=== PATIENT | male | born 1955 | race Caucasian/White ===

== ENCOUNTER 2020-07-14 14:23 | Outpatient (REF) | payer MEDICARE, MEDICAID, SELFPAY ==
--- NOTE | ~2020-07-14 | XR_ITS ---
EXAMINATION: XR knee RT 4V CLINICAL INFORMATION: Reason for Exam PAIN, BURNING COMPARISON: None available at the time of this dictation. TECHNIQUE: frontal, lateral, tunnel and oblique views FINDINGS: BONES: No fracture or dislocation is present. JOINTS: Narrowing of joint spaces suggest mild degenerative osteoarthritis. SOFT TISSUE: Normal XR/XR knee RT 4V IMPRESSION: Mild degenerative osteoarthritis. No joint effusion.
[2020-07-14 17:20] LABS: Alanine Aminotransferase 40 U/L (0-40); Albumin Level 4.1 g/dL (3.5-5.0); Alkaline Phosphatase 62 U/L (39-117); Anion Gap 13 (12-20); Aspartate Amino Transferase 28 U/L (5-37); Bilirubin Direct 0.2 mg/dL (0.0-0.5); Bilirubin Total 0.6 mg/dL (0.0-1.0); Blood Urea Nitrogen 11 mg/dL (9-16); Calcium 9.1 mg/dL (8.4-10.2); Carbon Dioxide 25 mmol/L (22-29); Chloride 106 mmol/L (96-108); Cholesterol 153 mg/dL; Estimated Glomerular Filt Rate > 60; Glucose Random 89 mg/dL (60-115); HDL Cholesterol 45 mg/dL; LDL Cholesterol Calculated 89 mg/dl; Potassium 4.2 mmol/L (3.3-5.1); Sodium 140 mmol/L (135-145); Total Protein 6.4 g/dL (6.5-8.0); Triglycerides 98 mg/dL
== END 2020-07-14 14:24 | disposition home or self-care (01) ==
LOC: HO.HMGCX 14:23
PROVIDERS: PCP Internal Medicine; Visit Provider Internal Medicine
DX: M25.561 Pain in right knee (principal); I10 Essential (primary) hypertension
CPT/HCPCS: 36415; 73564; 80048; 80061; 80076

== ENCOUNTER 2021-05-07 10:07 | Outpatient (REF) | payer MEDICARE, MEDICAID, SELFPAY ==
--- NOTE | ~2021-05-07 | XR_ITS ---
EXAMINATION: XR RIBS, RIGHT CLINICAL INFORMATION: Contusion from wall of the thorax COMPARISON: Previous chest x-ray January 2019 TECHNIQUE: 3 views of the right ribs and one view of the chest were obtained. FINDINGS: The cardiac and mediastinal contours are stable. There is a left subclavian AICD projecting over the right ventricle that appears unchanged. The lungs are clear. There is no pleural effusion or pneumothorax. There are old-appearing right seventh and eighth and ninth posterior lateral rib fractures. No acute fracture is seen. There are degenerative changes of the spine. XR/XR ribs RT min 3V w CXR1V IMPRESSION: No evidence for acute disease in the chest. No acute rib fracture.
== END 2021-05-07 10:08 | disposition home or self-care (01) ==
LOC: HO.HMGCX 10:07
PROVIDERS: PCP Internal Medicine; Visit Provider Internal Medicine
DX: S20.219A Contusion of unspecified front wall of thorax, initial encounter (principal)
CPT/HCPCS: 71101

== ENCOUNTER → 2022-04-16 09:03 | Outpatient (BNVA) | payer MEDICARE, MEDICAID, SELFPAY | PROVIDERS: PCP Internal Medicine; Referring Provider Internal Medicine; Visit Provider Surgery | DX: K60.3 Anal fistula (principal) | CPT/HCPCS: 99202 ==

== ENCOUNTER 2022-05-08 08:05 | Outpatient (REF) | payer MEDICARE, MEDICAID, SELFPAY ==
--- NOTE | ~2022-05-08 | XR_ITS ---
EXAMINATION: XR HAND, LEFT CLINICAL INFORMATION: Left hand pain COMPARISON: None available. TECHNIQUE: PA, lateral, and oblique views of the left hand. FINDINGS: The bones and soft tissues are normal. No fracture. Alignment is anatomic. Joint spaces are maintained. No erosions or soft tissue calcifications. XR/XR hand LT min 3V IMPRESSION: No significant abnormality of the left hand identified.
== END 2022-05-08 08:06 | disposition home or self-care (01) ==
LOC: HO.HOSX 08:05
PROVIDERS: PCP Internal Medicine; Visit Provider Orthopaedic Surgery
DX: M79.642 Pain in left hand (principal); K61.0 Anal abscess; R20.0 Anesthesia of skin; R20.2 Paresthesia of skin
CPT/HCPCS: 46600; 73130; 99202; 99212

== ENCOUNTER 2022-06-04 06:27 | Day surgery (SDC) | payer MEDICARE, MEDICAID, SELFPAY ==
[2022-05-31 09:02] VITALS: BMI 25.4
--- NOTE | 2022-06-03 09:51 | P.CONAN_ITS ---
Documented by User: Navya Bello NP 06/03/22 09:59 HPI - Anesthesia Eval Consult details Narrative: 66yo M for Exam Under Anesthesia poss fistulotomy possible seton possible exc of cyst Case reviewed with Dr Crook by ALFONZO Emerson ICD in situ Plavix/asa for CAD PMFSH Active Problems Active Problems: All Active Problems (Updated 05/31/22 @ 09:00 by Carolyn Forman RN) Contusion, chest wall (Acute) Anal abscess (Acute) Numbness and tingling in left hand (Acute) Past Medical History Medical History (Updated 05/31/22 @ 09:00 by Carolyn Forman RN) CAD (coronary artery disease) Elevated cholesterol High cholesterol HTN (hypertension) Hypothyroid Myocardial infarction Peripheral artery disease Family History Family History Mother Ovarian cancer Surgical History Surgical History (Updated 05/31/22 @ 09:00 by Carolyn Forman RN) AICD (automatic cardioverter/defibrillator) present History of surgery Hx of cardiac catheterization Hx of heart artery stent Hx of left inguinal hernia repair Social History Social History Are you a primary customer care consultant to a significant other at home: No Do you presently have visiting nurse or other home services: No Alcohol intake: never Patient Tobacco Use Status: Former Tobacco user Quit Date: 11/2021 Tobacco use type: Cigarette Cigarette Packs Per Day: 1.5 Cigarettes Per Day: 30.0 Years Smoked: 30 Smoked in Last 30 Days: No Use of substances other than those prescribed or required for medical reasons: No Have you been hit, kicked, punched, or otherwise hurt by someone within the past year? 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 Meds Allergies Allergy/AdvReac Type Severity Reaction Status Date / Time No Known Allergies Allergy Unverified 05/08/22 09:23 Home Medications Medication Instructions Recorded Confirmed Last Taken Type atorvastatin 80 mg tablet 80 mg PO DAILY 05/07/21 05/30/22 Unknown History carvedilol 3.125 mg tablet 3.125 mg PO BID 05/07/21 05/30/22 06/04/22 History clopidogrel 75 mg tablet 75 mg PO DAILY 05/07/21 05/30/22 05/28/22 History losartan 25 mg tablet 25 mg PO DAILY 05/07/21 05/30/22 Unknown History pantoprazole 40 mg tablet,delayed 40 mg PO DAILY 05/07/21 05/30/22 06/04/22 History release thiamine HCl (vitamin B1) 100 mg 100 mg PO DAILY 05/07/21 05/30/22 Unknown History tablet aspirin 81 mg tablet,delayed 81 mg PO QAM 05/31/22 05/31/22 06/02/22 History release levothyroxine 75 mcg tablet 75 mcg PO QAM 05/31/22 05/31/22 Unknown History sildenafil 50 mg tablet (Viagra) 50 mg PO DAILY PRN Erectile 05/31/22 05/31/22 Unknown History Dysfunction Exam Exam Date and Time: June 03, 2022 0951 Height,Weight and Vital Signs: Height 5 ft 8 in Weight 75.75 kg Narrative Narrative: ICD interrogation 04/2022 Battery and lead parameters eval'd and WNL. Battery longevity 9 years. Nml ICD function. 1 episode of NSVT Assessment and Plan Assessment Anesthesia Assessment: Chart Reviewed Documented by User: Neno Cavazos MD 06/04/22 08:50 [facility] Past Medical History Medical History (Updated 05/31/22 @ 09:00 by Carolyn Forman RN) CAD (coronary artery disease) Elevated cholesterol High cholesterol HTN (hypertension) Hypothyroid Myocardial infarction Peripheral artery disease Family History Family History Mother Ovarian cancer Family history of problems with anesthesia: No Surgical History Surgical History (Updated 05/31/22 @ 09:00 by Carolyn Forman RN) AICD (automatic cardioverter/defibrillator) present History of surgery Hx of cardiac catheterization Hx of heart artery stent Hx of left inguinal hernia repair History of Problems with Anesthesia: No Social History Social History Are you a primary customer care consultant to a significant other at home: No Do you presently have visiting nurse or other home services: No Alcohol intake: never Patient Tobacco Use Status: Former Tobacco user Quit Date: 11/2021 Tobacco use type: Cigarette Cigarette Packs Per Day: 1.5 Cigarettes Per Day: 30.0 Years Smoked: 30 Smoked in Last 30 Days: No Use of substances other than those prescribed or required for medical reasons: No Have you been hit, kicked, punched, or otherwise hurt by someone within the past year? 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 [email or web address] Allergies Allergy/AdvReac Type Severity Reaction Status Date / Time No Known Allergies Allergy Unverified 05/08/22 09:23 Home Medications Medication Instructions Recorded Confirmed Last Taken Type atorvastatin 80 mg tablet 80 mg PO DAILY 05/07/21 05/30/22 Unknown History carvedilol 3.125 mg tablet 3.125 mg PO BID 05/07/21 05/30/22 06/04/22 History clopidogrel 75 mg tablet 75 mg PO DAILY 05/07/21 05/30/22 05/28/22 History losartan 25 mg tablet 25 mg PO DAILY 05/07/21 05/30/22 Unknown History pantoprazole 40 mg tablet,delayed 40 mg PO DAILY 05/07/21 05/30/22 06/04/22 History release thiamine HCl (vitamin B1) 100 mg 100 mg PO DAILY 05/07/21 05/30/22 Unknown History tablet aspirin 81 mg tablet,delayed 81 mg PO QAM 05/31/22 05/31/22 06/02/22 History release levothyroxine 75 mcg tablet 75 mcg PO QAM 05/31/22 05/31/22 Unknown History sildenafil 50 mg tablet (Viagra) 50 mg PO DAILY PRN Erectile 05/31/22 05/31/22 Unknown History Dysfunction Exam Airway Mallampati Class: I TM Dist: >3cm Neck ROM: Full Heart: ok Lungs: ok Assessment and Plan Assessment Anesthesia Assessment: Anesthesia Plan Discussed Final Anesthetic Review Family History of Problems with Anesthesia: No History of Problems with Anesthesia: No NPO: Yes ASA Class: III Final Preanesthetic Review: No Changes in Pt Med Stat, Meds/Allgs Chart Reviewed, Consent Obtained/Reviewed and Anes Risks/Benef Reviewed Patient Risk: Intermediate Procedure Risk: Intermediate Anesthetic Plan Anesthetic Plan: GA and Agree w/ Assess. and Plan Disposition: Standard PACU
--- NOTE | 2022-06-04 | ECG_ITS ---
Test Reason : HX [place] PREOP Blood Pressure : / mmHG Vent. Rate : 056 BPM Atrial Rate : 056 BPM P-R Int : 176 ms QRS Dur : 092 ms QT Int : 446 ms P-R-T Axes : 051 059 019 degrees QTc Int : 430 ms Sinus bradycardia Low voltage QRS Borderline ECG No previous ECGs available Referred By: Navya Bello Electronically Signed By:Brian Lentz
[2022-06-04 07:11] VITALS: BP 127/74; PULSE 56; RESP 16; TEMP 36.5; O2SAT 97
[2022-06-04 07:40] LABS: Hematocrit 41.7 % (42.0-52.0); Hemoglobin 13.8 g/dl (14.0-18.0); Mean Corpuscular HGB Conc 33.1 g/dl (31.0-36.0); Mean Corpuscular Hemoglobin 31.1 pg (27.0-33.0); Mean Corpuscular Volume 93.9 fL (80.0-98.0); Mean Platelet Volume 9.2 fL (9.4-12.4); Platelet Count 247 X10*3/uL (160-400); Red Blood Count 4.44 X10*6/uL (4.60-5.80); Red Cell Distribution Width 13.2 % (11.0-16.0); White Blood Count 9.2 X10*3/uL (4.8-10.8)
[2022-06-04] MEDS: Lactated Ringers 1,000 ML 100 ML IVCONT (07:42)
[2022-06-04 07:57] LABS: Anion Gap 13 (12-20); Blood Urea Nitrogen 10 mg/dL (9-16); Calcium 9.1 mg/dL (8.4-10.2); Carbon Dioxide 24 mmol/L (22-29); Chloride 107 mmol/L (96-108); Creatinine Clr Calc Pharmacy 85.7; Estimated Glomerular Filt Rate > 60; Glucose Fasting 94 mg/dL (60-99); Potassium 4.1 mmol/L (3.3-5.1); Sodium 140 mmol/L (135-145)
--- NOTE | 2022-06-04 08:20 | MHC.SHP ---
Pre-Procedural Eval Section A Date of Service: 06/04/22 The patient is an INPATIENT: No Changes since office visit: No Cold of Flu in the past 2 weeks, No New Medical Problems, No Changes in Medication and No Patient answered all questions The History & Physical has been completed within 30 days and I have reviewed it.: Yes Section B Chief Complaint: Anal abscess Allergies: Allergies Allergy/AdvReac Type Severity Reaction Status Date / Time No Known Allergies Allergy Unverified 05/08/22 09:23 Plan I have reviewed the history and physical and performed a pertinent physical examination on my patient. No changes have occurred unless specified. Time Spent With Patient Time: Total time managing care of this patient today ____ minutes.
--- NOTE | 2022-06-04 09:26 | W.PM.OPN ---
Operative Note Operative Note Date of Service: 06/04/22 Narrative: Preop diagnosis: Recurrent perianal abscess, possible fistula, possible perianal cyst Postop diagnosis: Perianal cyst, no fistula identified Procedure: Exam under anesthesia, excision of perianal cyst Surgeon: Joe Betancur MD The patient is a 66-year-old male with note of a recurrent perianal abscess for many years now. He was seen by me in the office. Was noted to have an indurated area anteriorly on the perianal skin. Anoscopy did not reveal any obvious internal fistulous opening. I therefore explained to him that it will be best to proceed with an exam under anesthesia and if identify any tract, will do fistulotomy or possible seton placement. Otherwise, we may just need to proceed with excision of a perianal cyst. He understood the technique of the planned procedure. He was aware of the risks, benefits, and alternatives. He was brought to the operating room. He was placed in prone rocky-knife position under general anesthesia via LMA. A surgical time-out was done. The perianal area was prepped and draped in the usual sterile fashion. The buttocks were retracted with wide tape laterally. I infiltrated the perianal area with lidocaine 1%. Examination of the perianal area revealed this small induration, about 3 cm from the anal verge anteriorly and a little to the left of the midline. There was no fluctuance or any obvious sinus. I inserted the Buire Watson retractor examined the anal canal circumferentially. There was no identifiable fistulous opening dentate line. There is no palpable induration suggestive of a tract. There was no lesion or any unusual mucosal lining. It appeared therefore that there was no fistulous tract. I therefore proceeded to an elliptical incision around this indurated area using blade 15 and this carried down through the full-thickness of the skin and subcutaneous fat to excise this entire indurated tissue. I then proceeded to probe this area and there was no identifiable tract. The entire cavity appeared to be blind. I irrigated this area of excision. I closed the incision with thickness chromic 3-0 interrupted sutures. The area was then infiltrated with Marcaine 0.5% for postop analgesia. The procedure was then completed The patient tolerated procedure well. There were no immediate complications. Initial and final counts of sponges and instruments were correct. Estimated blood loss about 5 cc The patient was extubated without difficulty and transferred to the recovery room with stable vital signs.
[2022-06-04 09:41] VITALS: BP 124/77; PULSE 62; RESP 18; TEMP 36.5; O2SAT 98
[2022-06-04 09:46] VITALS: BP 121/79; PULSE 59; RESP 18; O2SAT 99
[2022-06-04 09:51] VITALS: BP 115/76; PULSE 53; RESP 18; O2SAT 99
[2022-06-04 09:56] VITALS: BP 120/81; PULSE 59; RESP 18; TEMP 36.1; O2SAT 99
== END 2022-06-04 10:19 | disposition home or self-care (01) ==
PROVIDERS: Nurse Practitioner; PCP Internal Medicine; Visit Provider Surgery
PROC: (CPT 46922; principal; 2022-06-04 09:10)
DX: L05.91 Pilonidal cyst without abscess (principal); I10 Essential (primary) hypertension; I25.10 Atherosclerotic heart disease of native coronary artery without angina pectoris; Z95.810 Presence of automatic (implantable) cardiac defibrillator; E78.00 Pure hypercholesterolemia, unspecified; Z79.899 Other long term (current) drug therapy; Z79.82 Long term (current) use of aspirin; Z87.891 Personal history of nicotine dependence
CPT/HCPCS: 46922; 36415; 80048; 85027; 88304; 93005; J3010

== ENCOUNTER → 2022-06-17 14:50 | Outpatient (BNVA) | payer MEDICARE, MEDICAID, SELFPAY | PROVIDERS: PCP Internal Medicine; Visit Provider Surgery | DX: Z48.815 Encounter for surgical aftercare following surgery on the digestive system (principal); K61.0 Anal abscess | CPT/HCPCS: 99212 ==

== ENCOUNTER 2022-06-27 08:53 | Outpatient (REF) | payer MEDICARE, MEDICAID, SELFPAY ==
--- NOTE | 2022-06-27 08:56 | EMG_ITS ---
Bilateral median and ulnar motor and sensory studies were performed. Bilateral radial and sensory studies were performed and paraspinal muscles were tested with a needle. IMPRESSION: 1. [id number] bilateral median neuropathy across carpal tunnel. 2. Mild bilateral ulnar neuropathy across cubital tunnel. MD BREANNA Enrique/USAMAL / [id number]
== END 2022-06-27 08:54 | disposition home or self-care (01) ==
LOC: HO.NEURO 08:53
PROVIDERS: Visit Provider Orthopaedic Surgery
DX: R20.0 Anesthesia of skin (principal); R20.2 Paresthesia of skin
CPT/HCPCS: 95886; 95911

== ENCOUNTER 2022-08-23 09:58 | Outpatient (REF) | payer MEDICARE, MEDICAID, SELFPAY ==
[2022-08-23 15:21] LABS: Alanine Aminotransferase 14 U/L (0-40); Albumin Level 4.1 g/dL (3.5-5.0); Alkaline Phosphatase 77 U/L (39-117); Anion Gap 14 (12-20); Aspartate Amino Transferase 19 U/L (5-37); Blood Urea Nitrogen 14 mg/dL (9-16); Calcium 9.8 mg/dL (8.4-10.2); Carbon Dioxide 26 mmol/L (22-29); Chloride 104 mmol/L (96-108); Cholesterol 180 mg/dL; Estimated Glomerular Filt Rate > 60; Glucose Fasting 62 mg/dL (60-99); HDL Cholesterol 44 mg/dL; LDL Cholesterol Calculated 94 mg/dl; Sodium 140 mmol/L (135-145); Total Protein 6.9 g/dL (6.5-8.0); Triglycerides 211 mg/dL
[2022-08-23 15:45] LABS: TSH reflex Free T4 7.77 uIU/mL (0.32-4.0)
[2022-08-23 16:31] LABS: Bilirubin Total 0.6 mg/dL (0.0-1.0)
[2022-08-23 16:38] LABS: Free T4 (Free Thyroxine) 1.48 ng/dL (0.71-1.85)
== END 2022-08-23 09:59 | disposition home or self-care (01) ==
LOC: HO.CHCLDS 09:58
PROVIDERS: Visit Provider Internal Medicine
DX: E78.2 Mixed hyperlipidemia (principal)
CPT/HCPCS: 36415; 80053; 80061; 84439; 84443

== ENCOUNTER 2022-09-25 10:42 | Outpatient (AMB) | payer MEDICARE, MEDICAID, SELFPAY ==
[2022-09-25 10:45] VITALS: BP 128/78; PULSE 60; BMI 24.2
--- NOTE | 2022-09-25 10:45 | A.OFFVIS_ITS ---
Intake Vital Signs 09/25/22 10:45 Height 5 ft 8 in Weight 159 lb BMI 24.2 BP 128/78 Blood Pressure Location Lt brachial Position Sitting Pulse 60 Pulse Source Monitor Intake Visit Reasons: NPV/coronary artery disease Intake Note: New patient visit with EKG for evaluation of coronary artery disease. 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 Fine Wire Required: No Accompanied by: Self / Same As Patient Allergies No Known Allergies Allergy (Verified 09/25/22 10:49) Medication List - Last Reconciled 09/25/22 by Brian Lentz MD aspirin 81 mg PO QAM atorvastatin 80 mg PO DAILY carvedilol 3.125 mg PO BID clopidogrel 75 mg PO DAILY levothyroxine 125 mcg PO QAM losartan 25 mg PO DAILY oxycodone-acetaminophen 5-325 mg (Percocet) 1 tab PO Q4-6H PRN pantoprazole 40 mg PO DAILY sildenafil (Viagra) 50 mg PO DAILY PRN thiamine HCl (vitamin B1) 100 mg PO DAILY HPI HPI Comments History of Present Illness Details Hospital 67-year-old gentleman who is here for 1st office visit. He was following at [place] with Dr. Rhianna Nuñez. In 2019 while at work he had cardiac arrest and was rushed to [facility]. It appears she had complete heart block and had pacemaker placement at the same time. He is saying he had stents put in at that time. We do not have any information about it but could be that he had right coronary artery closure with complete heart block with subsequently no recovery and required pacemaker placement. In any case currently no records available. He is denying any symptoms. He is saying that he wakes up at 03:00 and leaves his house and is active all the time including biking roller-skating with his grandchildren cetera. He has no chest discomfort shortness of breath. Taking medications regularly. [facility], [facility] Medical History (Updated 09/25/22 @ 11:57 by Brian Lentz MD) CAD (coronary artery disease) Elevated cholesterol High cholesterol HTN (hypertension) Hypothyroid Myocardial infarction Peripheral artery disease Surgical History AICD (automatic cardioverter/defibrillator) present History of surgery Hx of cardiac catheterization Hx of heart artery stent Hx of left inguinal hernia repair Family History (Updated 09/25/22 @ 10:51 by NATY Garvin) Mother Ovarian cancer Father Heart attack Social History (Updated 09/25/22 @ 10:51 by NATY Garvin) Are you a primary critical care physician assistant to a significant other at home: No Do you presently have visiting nurse or other home services: No Alcohol intake: never Patient Tobacco Use Status: Former Tobacco user Quit Date: 11/2021 Tobacco use type: Cigarette Years Smoked: 30 +/- Current occupational status: retired 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 Review of Systems Const Denies weakness Eyes Denies loss of vision ENT Denies dizziness Card Denies chest pain, Denies chest pain with activity, Denies syncope, Denies rapid heart rate, Denies pedal edema, Denies edema, Denies leg edema, Denies lightheadedness, Denies palpitations, Denies dyspnea, Denies dyspnea on exertion and Denies orthopnea Resp Denies cough, Denies dyspnea, Denies dyspnea on exertion and Denies wheezing GI Denies hematochezia and Denies change in stool character Denies hematuria, Denies dysuria and Denies urinary frequency Musc Denies abnormal gait, Denies muscle cramps, Denies muscle weakness, Denies numbness, Denies radiating pain into limb and Denies tingling Skin/Breast Denies nail changes and Denies rash Neuro Denies Abnormal speech present, Denies abnormal gait, Denies dizziness, Denies syncope, Denies loss of vision, Denies memory loss, Denies numbness, Denies tingling and Denies weakness Psych Denies depression and Denies memory loss Endo Denies palpitations Aller/Immun Denies wheezing Physical Exam Vital Signs: Last Vital Signs Pulse 60 09/25/22 10:45 BP 128/78 09/25/22 10:45 BMI result Body Mass Index 24.2 GENERAL APPEARANCE: in no acute distress, pleasant. NECK: no carotid bruit, no jugular venous distention. SKIN: no suspicious lesions, warm and dry. HEART: no murmurs, regular rate and rhythm. LUNGS: clear to auscultation bilaterally. ABDOMEN: soft, nontender. EXTREMITIES: no edema. PERIPHERAL PULSES: equal. NEUROLOGIC: No gross deficits, AAO X 3 Neuro Speech: No Abnormal speech present Office Procedures EKG Details: Normal sinus rhythm 60 beats per minute, Imtiaz, cannot rule out inferior infarct, QTC 438 milliseconds. 39185-[id number], Complete Assessment & Plan Assessment & Plan (1) Stable angina: Code(s): I20.8 - Other forms of angina pectoris (2) High cholesterol: Code(s): E78.00 - Pure hypercholesterolemia, unspecified Plan Pleasant 67-year-old gentleman who is here for 1st office visit. He has known history of coronary disease with previous cardiac arrest in PCI at [facility] in 2019. He has been following yearly with [facility] and has not had any further symptoms since then. He is saying he had workup done including stress testing and echocardiography with [facility] after his cardiac arrest in the last few years. Denying any exertional symptoms right now. Reporting that he is quite active physically. Blood pressure control is good. No testing required currently. His LDL cholesterol is high. His triglycerides also high. He recently increase levothyroxine to 125 mcg daily. He should have repeat fasting lipid panel in 8 weeks. If LDL cholesterol is not less than 70 then consider adding ezetimibe 10 mg daily. Thank you for allowing me to participate in the care of your patient. Please feel free to contact me if you have any questions. Coding Level of Care Code New Pt Level 4 (67913) Diagnoses Stable angina I20.8 High cholesterol E78.00 CPT Codes EKG - CPT: 24058-[id number], Complete ([id number])
== END 2022-09-25 12:37 | disposition home or self-care (01) ==
LOC: HO.HCSM 10:42
PROVIDERS: PCP Internal Medicine; Referring Provider Internal Medicine; Visit Provider Internal Medicine Cardiovascular Disease
DX: I20.8 Other forms of angina pectoris (principal); E78.00 Pure hypercholesterolemia, unspecified
CPT/HCPCS: 93010; 99213

== ENCOUNTER → 2022-09-25 10:42 | Outpatient (BNVA) | payer MEDICARE, MEDICAID, SELFPAY | PROVIDERS: PCP Internal Medicine; Referring Provider Internal Medicine; Visit Provider Internal Medicine Cardiovascular Disease | DX: I20.8 Other forms of angina pectoris (principal); E78.00 Pure hypercholesterolemia, unspecified | CPT/HCPCS: 93005; 99212 ==

== ENCOUNTER → 2023-01-10 23:59 | Outpatient (BNV) | payer OTHER, MEDICAID, SELFPAY ==
--- NOTE | 2023-01-20 20:32 | A.OFFVIS_ITS ---
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 Allergies No Known Allergies Allergy (Verified 09/25/22 10:49) PFSH Medical History (Updated 01/20/23 @ 17:50 by Brian Lentz MD) Hypothyroid Peripheral artery disease Elevated cholesterol Myocardial infarction CAD (coronary artery disease) HTN (hypertension) High cholesterol Surgical History Hx of cardiac catheterization Hx of heart artery stent AICD (automatic cardioverter/defibrillator) present Hx of left inguinal hernia repair History of surgery Family History (Updated 09/25/22 @ 10:51 by NATY Garvin) Mother Ovarian cancer Father Heart attack Social History (Updated 09/25/22 @ 10:51 by NATY Garvin) Are you a primary respiratory care technician to a significant other at home: No Do you presently have visiting nurse or other home services: No Alcohol intake: never Patient Tobacco Use Status: Former Tobacco user Quit Date: 11/2021 Tobacco use type: Cigarette Years Smoked: 30 +/- Current occupational status: retired 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
== END ==
PROVIDERS: PCP Internal Medicine; Visit Provider Internal Medicine Cardiovascular Disease
DX: I25.10 Atherosclerotic heart disease of native coronary artery without angina pectoris (principal)
CPT/HCPCS: 93297

== ENCOUNTER → 2023-01-10 23:59 | Outpatient (BNV) | payer OTHER, MEDICAID, SELFPAY ==
--- NOTE | 2023-01-20 17:49 | MHC.OFFVIS ---
Intake Intake Visit Reasons: Remote ICD Check- [employer] Allergies No Known Allergies Allergy (Verified 09/25/22 10:49) PFS Medical History (Updated 01/20/23 @ 17:49 by Brian Lentz MD) Hypothyroid Peripheral artery disease Elevated cholesterol Myocardial infarction CAD (coronary artery disease) HTN (hypertension) High cholesterol Surgical History Hx of cardiac catheterization Hx of heart artery stent AICD (automatic cardioverter/defibrillator) present Hx of left inguinal hernia repair History of surgery Family History (Updated 09/25/22 @ 10:51 by NATY Garvin) Mother Ovarian cancer Father Heart attack Social History (Updated 09/25/22 @ 10:51 by NATY Garvin) Are you a primary care tech to a significant other at home: No Do you presently have visiting nurse or other home services: No Alcohol intake: never Patient Tobacco Use Status: Former Tobacco user Quit Date: 11/2021 Tobacco use type: Cigarette Years Smoked: 30 +/- Current occupational status: retired 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 No new alerts. [id number] Cardiac Device Interrogation, pacemaker or defibrillator Procedure code (CPT) selection complete Assessment & Plan Assessment & Plan (1) CAD (coronary artery disease): Comment: last OV w/side laster tack 05/2020 but had device interrogation 04/10/22 @ [facility]-currently denies CP/SOB-is a runner, skis all winter, roller blades w/grandchildren (chart reviewed by on 05/31/22 & OK to proceed with 06/04 surgery) Code(s): I25.10 - Atherosclerotic heart disease of [place] coronary artery without angina pectoris Plan: Coding Level of Care Code Procedure Only Diagnoses CAD (coronary artery disease) I25.10 CPT Codes Cardiac Device Check - Cardiac Device 14: [id number] Cardiac Device Interrogation, pacemaker or defibrillator ([id number])
== END ==
PROVIDERS: PCP Internal Medicine; Visit Provider Internal Medicine Cardiovascular Disease
DX: I25.10 Atherosclerotic heart disease of native coronary artery without angina pectoris (principal); Z95.810 Presence of automatic (implantable) cardiac defibrillator
CPT/HCPCS: 93295

== ENCOUNTER 2023-02-05 14:45 | Outpatient (REF) | payer OTHER, SELFPAY ==
[2023-02-05 18:00] LABS: Alanine Aminotransferase 13 U/L (0-40); Alkaline Phosphatase 72 U/L (39-117); Anion Gap 10 (12-20); Aspartate Amino Transferase 20 U/L (5-37); Bilirubin Total 0.5 mg/dL (0.0-1.0); Blood Urea Nitrogen 11 mg/dL (9-16); Calcium 9.5 mg/dL (8.4-10.2); Carbon Dioxide 27 mmol/L (22-29); Chloride 105 mmol/L (96-108); Cholesterol 174 mg/dL (<200); Estimated Glomerular Filt Rate > 60; Glucose Random 94 mg/dL (60-115); HDL Cholesterol 44 mg/dL (>40); LDL Cholesterol Calculated 110 mg/dL (<100); Potassium 3.7 mmol/L (3.3-5.1); Sodium 138 mmol/L (135-145); Total Protein 6.8 g/dL (6.5-8.0); Triglycerides 101 mg/dL (<150)
[2023-02-05 18:17] LABS: TSH reflex Free T4 1.44 uIU/mL (0.32-4.0)
== END 2023-02-05 14:46 | disposition home or self-care (01) ==
LOC: HO.CHCLDS 14:45
PROVIDERS: Visit Provider Internal Medicine
DX: E03.9 Hypothyroidism, unspecified (principal); E78.2 Mixed hyperlipidemia
CPT/HCPCS: 36415; 80053; 80061; 84443

== ENCOUNTER → 2023-05-09 23:59 | Outpatient (BNV) | payer OTHER, SELFPAY ==
--- NOTE | 2023-05-18 20:05 | A.OFFVIS_ITS ---
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 Allergies No Known Allergies Allergy (Verified 09/25/22 10:49) PFSH Medical History (Updated 01/20/23 @ 17:50 by Brian Lentz MD) Hypothyroid Peripheral artery disease Elevated cholesterol Myocardial infarction CAD (coronary artery disease) HTN (hypertension) High cholesterol Surgical History Hx of cardiac catheterization Hx of heart artery stent AICD (automatic cardioverter/defibrillator) present Hx of left inguinal hernia repair History of surgery Family History (Updated 09/25/22 @ 10:51 by NATY Garvin) Mother Ovarian cancer Father Heart attack Social History (Updated 09/25/22 @ 10:51 by NATY Garvin) Are you a primary client care consultant to a significant other at home: No Do you presently have visiting nurse or other home services: No Alcohol intake: never Patient Tobacco Use Status: Former Tobacco user Quit Date: 11/2021 Tobacco use type: Cigarette Years Smoked: 30 +/- Current occupational status: retired 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 80514-Fxqfba Cardiac Device Interrogation, cardio physiologic monitor Procedure code (CPT) selection complete Assessment & Plan Assessment & Plan (1) CAD (coronary artery disease): Comment: last OV w/certified alcohol counselor 05/2020 but had device interrogation 04/10/22 @ [facility]-currently denies CP/SOB-is a runner, skis all winter, roller blades w/grandchildren (chart reviewed by on 05/31/22 & OK to proceed with 06/04 surgery) Code(s): I25.10 - Atherosclerotic heart disease of [place] coronary artery without angina pectoris Plan: Coding Level of Care Code Procedure Only Diagnoses CAD (coronary artery disease) I25.10 CPT Codes Cardiac Device Check - Cardiac Device 15: 03197-[id number] Cardiac Device Inter rogation, cardio physiologic monitor ([id number])
== END ==
PROVIDERS: PCP Internal Medicine; Visit Provider Internal Medicine Cardiovascular Disease
DX: I25.10 Atherosclerotic heart disease of native coronary artery without angina pectoris (principal); Z95.810 Presence of automatic (implantable) cardiac defibrillator
CPT/HCPCS: 93297

== ENCOUNTER → 2023-05-09 23:59 | Outpatient (BNV) | payer OTHER, SELFPAY ==
--- NOTE | 2023-05-18 20:04 | A.OFFVIS_ITS ---
Intake Intake Visit Reasons: Remote ICD Check- Medtr[employer] Allergies No Known Allergies Allergy (Verified 09/25/22 10:49) PFSH Medical History (Updated 01/20/23 @ 17:50 by Brian Lentz MD) Hypothyroid Peripheral artery disease Elevated cholesterol Myocardial infarction CAD (coronary artery disease) HTN (hypertension) High cholesterol Surgical History Hx of cardiac catheterization Hx of heart artery stent AICD (automatic cardioverter/defibrillator) present Hx of left inguinal hernia repair History of surgery Family History (Updated 09/25/22 @ 10:51 by NATY Garvin) Mother Ovarian cancer Father Heart attack Social History (Updated 09/25/22 @ 10:51 by NATY Garvin) Are you a primary care specialist to a significant other at home: No Do you presently have visiting nurse or other home services: No Alcohol intake: never Patient Tobacco Use Status: Former Tobacco user Quit Date: 11/2021 Tobacco use type: Cigarette Years Smoked: 30 +/- Current occupational status: retired 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 [id number] Cardiac Device Interrogation, pacemaker or defibrillator Procedure code (CPT) selection complete Assessment & Plan Assessment & Plan (1) CAD (coronary artery disease): Comment: last OV w/heel splitter 05/2020 but had device interrogation 04/10/22 @ [facility]-currently denies CP/SOB-is a runner, skis all winter, roller bl ades w/grandchildren (chart reviewed by on 05/31/22 & OK to proceed with 06/04 surgery) Code(s): I25.10 - Atherosclerotic heart disease of [place] coronary artery without angina pectoris Plan: Coding Level of Care Code Procedure Only Diagnoses CAD (coronary artery disease) I25.10 CPT Codes Cardiac Device Check - Cardiac Device 14: [id number] Cardiac Device Interrogation, pacemaker or defibrillator ([id number])
== END ==
PROVIDERS: PCP Internal Medicine; Visit Provider Internal Medicine Cardiovascular Disease
DX: I25.10 Atherosclerotic heart disease of native coronary artery without angina pectoris (principal); Z95.810 Presence of automatic (implantable) cardiac defibrillator
CPT/HCPCS: 93295

== ENCOUNTER → 2023-08-08 23:59 | Outpatient (BNV) | payer OTHER, SELFPAY ==
--- NOTE | 2023-08-11 12:52 | MHC.OFFVIS ---
Intake Visit Reasons: Remote ICD- Medtronic Allergies No Known Allergies Allergy (Verified 09/25/22 10:49) PFSH Medical History (Updated 01/20/23 @ 17:50 by Brian Lentz MD) Hypothyroid Peripheral artery disease Elevated cholesterol Myocardial infarction CAD (coronary artery disease) HTN (hypertension) High cholesterol Surgical History (Updated 08/11/23 @ 12:52 by Brian Lentz MD) Hx of cardiac catheterization Hx of heart artery stent AICD (automatic cardioverter/defibrillator) present Hx of left inguinal hernia repair History of surgery Family History (Updated 09/25/22 @ 10:51 by NATY Garvin) Mother Ovarian cancer Father Heart attack Social History (Updated 09/25/22 @ 10:51 by NATY Garvin) Are you a primary animal care specialist to a significant other at home: No Do you presently have visiting nurse or other home services: No Alcohol intake: never Patient Tobacco Use Status: Former Tobacco user Tobacco use type: Cigarette Years Smoked: 30 +/- Current occupational status: retired 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 [id number] Cardiac Device Check, single lead implantable defibrillator Procedure code (CPT) selection complete Assessment & Plan Assessment & Plan (1) AICD (automatic cardioverter/defibrillator) present: Comment: 2019-S/P STEMI w/VT-VF arrest ([employer]tr[employer])-has never fired Code(s): Z95.810 - Presence of automatic (implantable) cardiac defibrillator Category: Surgical Plan Orders: Orders AMB Cardiac Device Follow-up 08/08/23 Z95.810 - Presence of automatic (implantable) cardiac defibrillator Coding Level of Care Code Procedure Only Diagnoses AICD (automatic cardioverter/defibrillator) present Z95.810 CPT Codes Cardiac Device Check - Cardiac Device 4: 89220-LV Cardiac Device Check, single lead implantable defibrillator ([id number])
== END ==
PROVIDERS: PCP Internal Medicine; Visit Provider Internal Medicine Cardiovascular Disease
DX: I21.3 ST elevation (STEMI) myocardial infarction of unspecified site (principal); Z95.810 Presence of automatic (implantable) cardiac defibrillator
CPT/HCPCS: 93295

== ENCOUNTER → 2023-11-07 23:59 | Outpatient (BNV) | payer OTHER, SELFPAY ==
--- NOTE | 2023-11-23 17:45 | MHC.OFFVIS ---
Intake Visit Reasons: Remote ICD check- [employer] Allergies No Known Allergies Allergy (Verified 09/25/22 10:49) PFSH Medical History (Updated 01/20/23 @ 17:50 by Brian Lentz MD) Hypothyroid Peripheral artery disease Elevated cholesterol Myocardial infarction CAD (coronary artery disease) HTN (hypertension) High cholesterol Surgical History (Updated 08/11/23 @ 12:52 by Brian Lentz MD) Hx of cardiac catheterization Hx of heart artery stent AICD (automatic cardioverter/defibrillator) present Hx of left inguinal hernia repair History of surgery Family History (Updated 09/25/22 @ 10:51 by NATY Garvin) Mother Ovarian cancer Father Heart attack Social History (Updated 09/25/22 @ 10:51 by NATY Garvin) Are you a primary home care administrator to a significant other at home: No Do you presently have visiting nurse or other home services: No Alcohol intake: never Patient Tobacco Use Status: Former Tobacco user Tobacco use type: Cigarette Years Smoked: 30 +/- Current occupational status: retired 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 78274-NM Cardiac Device Check, leadless/single lead pacemaker Procedure code (CPT) selection complete Assessment & Plan Assessment & Plan (1) AICD (automatic cardioverter/defibrillator) present: Comment: 2019-S/P STEMI w/VT-VF arrest ([employer])-has never fired Code(s): Z95.810 - Presence of automatic (implantable) cardiac defibrillator Category: Surgical Plan: Coding Level of Care Code Procedure Only Diagnoses AICD (automatic cardioverter/defibrillator) present Z95.810 CPT Codes Cardiac Device Check - Cardiac Device 1: 58774-KX Cardiac Device Check, leadless/single lead pacemaker ([id number])
== END ==
PROVIDERS: PCP Internal Medicine; Visit Provider Internal Medicine Cardiovascular Disease
DX: Z45.02 Encounter for adjustment and management of automatic implantable cardiac defibrillator (principal)
CPT/HCPCS: 93279

== ENCOUNTER → 2024-02-06 23:59 | Outpatient (BNV) | payer OTHER, SELFPAY ==
--- NOTE | 2024-02-12 18:20 | MHC.OFFVIS ---
Intake Visit Reasons: Remote ICD check- Medtr[employer] Allergies No Known Allergies Allergy (Verified 09/25/22 10:49) PFSH Medical History (Updated 01/20/23 @ 17:50 by Brian Lentz MD) Hypothyroid Peripheral artery disease Elevated cholesterol Myocardial infarction CAD (coronary artery disease) HTN (hypertension) High cholesterol Surgical History (Updated 08/11/23 @ 12:52 by Brian Lentz MD) Hx of cardiac catheterization Hx of heart artery stent AICD (automatic cardioverter/defibrillator) present Hx of left inguinal hernia repair History of surgery Family History (Updated 09/25/22 @ 10:51 by NATY Garvin) Mother Ovarian cancer Father Heart attack Social History (Updated 09/25/22 @ 10:51 by NATY Garvin) Are you a primary urgent care nurse practitioner to a significant other at home: No Do you presently have visiting nurse or other home services: No Alcohol intake: never Patient Tobacco Use Status: Former Tobacco user Tobacco use type: Cigarette Years Smoked: 30 +/- Current occupational status: retired 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 99217-PW Cardiac Device Check, single lead implantable defibrillator Procedure code (CPT) selection complete Assessment & Plan Assessment & Plan (1) AICD (automatic cardioverter/defibrillator) present: Comment: 2019-S/P STEMI w/VT-VF arrest ([employer]tr[employer])-has never fired Code(s): Z95.810 - Presence of automatic (implantable) cardiac defibrillator Category: Surgical Plan Orders: Orders AMB Cardiac Device Follow-up 02/06/24 Z95.810 - Presence of automatic (implantable) cardiac defibrillator Coding Level of Care Code Procedure Only Diagnoses AICD (automatic cardioverter/defibrillator) present Z95.810 CPT Codes Cardiac Device Check - Cardiac Device 4: 91898-JH Cardiac Device Check, single lead implantable defibrillator ([id number])
== END ==
PROVIDERS: PCP Internal Medicine; Visit Provider Internal Medicine Cardiovascular Disease
DX: I21.4 Non-ST elevation (NSTEMI) myocardial infarction (principal); Z95.810 Presence of automatic (implantable) cardiac defibrillator
CPT/HCPCS: 93295

== ENCOUNTER → 2024-02-06 23:59 | Outpatient (BNV) | payer OTHER, SELFPAY ==
--- NOTE | 2024-02-12 18:23 | A.OFFVIS_ITS ---
Intake Visit Reasons: Remote HF monitoring- [employer]tr[employer] Allergies No Known Allergies Allergy (Verified 09/25/22 10:49) PFSH Medical History (Updated 01/20/23 @ 17:50 by Brian Lentz MD) Hypothyroid Peripheral artery disease Elevated cholesterol Myocardial infarction CAD (coronary artery disease) HTN (hypertension) High cholesterol Surgical History (Updated 08/11/23 @ 12:52 by Brian Lentz MD) Hx of cardiac catheterization Hx of heart artery stent AICD (automatic cardioverter/defibrillator) present Hx of left inguinal hernia repair History of surgery Family History (Updated 09/25/22 @ 10:51 by NATY Garvin) Mother Ovarian cancer Father Heart attack Social History (Updated 09/25/22 @ 10:51 by NATY Garvin) Are you a primary out of school hours care worker to a significant other at home: No Do you presently have visiting nurse or other home services: No Alcohol intake: never Patient Tobacco Use Status: Former Tobacco user Tobacco use type: Cigarette Years Smoked: 30 +/- Current occupational status: retired 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 74796-[id number] Device Interrogation, cardiac physiologic monitor system Procedure code (CPT) selection complete Assessment & Plan Assessment & Plan (1) AICD (automatic cardioverter/defibrillator) present: Comment: 2019-S/P STEMI w/VT-VF arrest ([employer])-has never fired Code(s): Z95.810 - Presence of automatic (implantable) cardiac defibrillator Category: Surgical Plan: Plan Orders: Orders AMB Cardiac Device Follow-up 02/06/24 Z95.810 - Presence of automatic (implantable) cardiac defibrillator Coding Level of Care Code Procedure Only Diagnoses AICD (automatic cardioverter/defibrillator) present Z95.810 CPT Codes Cardiac Device Check - Cardiac Device 10: 35930-Nvvqcfk Device Interrogation, cardiac physiologic monitor system ([id number])
== END ==
PROVIDERS: PCP Internal Medicine; Visit Provider Internal Medicine Cardiovascular Disease
DX: I21.4 Non-ST elevation (NSTEMI) myocardial infarction (principal); Z95.810 Presence of automatic (implantable) cardiac defibrillator
CPT/HCPCS: 93297

== ENCOUNTER 2024-04-14 08:18 | Outpatient (REF) | payer MEDICARE, MEDICAID, SELFPAY ==
--- OUTSIDE RECORDS SUMMARY | 2024-04-14 08:44 | XMS_ITS | Encounter Summary ---
Author Organization [facility] Address [address] [place] [address] Care Team Providers Care Electrical Journeyman Name Role Phone Drew Willett MD Unavailable [phone] Rhianna Tracey MD Unavailable [phone] System, Provider Not In Primary Care Provider Un available Rhianna Tracey MD Unavailable [phone]- [phone] Julio César Mcdonough MD Primary Care Prov ider Encounter Details Date Type Department Care Team (Late st Contact Info) Description 03/05/2021 Telephone [facility] Vascular & Endovascular Surgery [address] [place] [address] Marco A Yang MD [address] [place] [phone] Social History Tobacco Use Types Packs/Day Years Used Date Smoking Tobacco: Former Smokeless Tobacco: Never Alcohol Use Standard Drinks/Week Comments Never 0 (1 standard drink = 0.6 oz pur e alcohol) AUDIT-C Answer Date Recorded Q1: How often do you have a drink containing alc ohol? Never 11/25/2019 Q2: How many drinks containi ng alcohol do you have on a typical day when you are drinking? Not asked 11/25/2019 Q3: How often do you have six or more drinks on one occasion? Never 11/25/2019 Sex and Gender Information Value Date Recorded Sex Assigned at Male 10/07/2023 4:16 PM EDT Gender Identity Male 10/07/2023 4:16 PM EDT Sexual Orientation Choose not to disclose 2023 4:16 PM EDT documented as of this encounter Plan of Treatment Upcoming Encounters Date Type Department Care Team (Late st Contact Info) Description 07/07/2024 8:30 AM EDT Appointment [facility] Heart & Vascular [facility] - Electrophysiology [address] [place] [phone] Nettie Cunningahm V., TABLE GAMES DUAL RATE SUPERVISOR [address] [facility] [address] [place] [address] 04/06/2025 1:40 PM EST Appointment [facility] Heart Vascular [facility] - Electrophysiology [address] [place] [phone] Nettie Cunningham V., TABLE GAMES DUAL RATE SUPERVISOR [address] [facility] [address] [place], [place] [phone] documented as of this encounter Visit Diagnoses Not on filedocumented in this encounter Care Teams Electrical Journeyman Relationship Specialty Start Date End Date System, Provider Not In PCP - General 04/23/19 04/09/22 Julio César Mcdnoough MD [address] [place] [phone] PCP - General Internal Medicine 04/10/22 Drew Willett MD [address] [facility] [address] [place] [address] Cardiovascular Disease 01/06/19 3 Rhianna Tracey MD [address] [facility] [address] [place] [address] Resident Cardiology Hospitalist 02/12/19 3 Rhianna Tracey MD [address] [address] Primary Branch Examiner Cardiovascular Disease 04/10/22 documented as of this encounter
--- OUTSIDE RECORDS SUMMARY | 2024-04-14 08:44 | XMS_ITS | Encounter Summary ---
Author Organization [facility] Address [address] [place] [address] Care Team Providers Care Global Head Advertiser Solutions Name Role Phone Drew Willett MD Unavailable [phone] Rhianna Tracey MD Unavailable [phone] System, Provider Not In Primary Care Provider Un available Rhianna Tracey MD Unavailable [phone] Julio César Mcdonough MD Primary Care Prov ider Encounter Details Date Type Department Care Team (Late st Contact Info) Description 03/06/2021 Telephone [facility] Vascular & Endovascular Surgery [address] [place] [address] Marco A Yang MD [address] [place] [phone] Social History Tobacco Use Types Packs/Day Years [...] Info) Description 07/07/2024 8:30 AM EDT Appointment [facility] Heart & Vascular [facility] - Electrophysiology [address] [place] [phone] Nettie Cunningham V., EYE DROPPER ASSEMBLER [address] [facility] [address] [place] [address] 04/06/2025 1:40 PM EST Appointment [facility] Heart Vascular [facility] - Electrophysiology [address] [place] [phone] Nettie Cunningham V., EYE DROPPER ASSEMBLER [address] [facility] [address] [place], [place] [phone] documented as of this encounter Visit Diagnoses Not on filedocumented in this encounter Care Teams Global Head Advertiser Solutions Relationship Specialty Start Date End Date System, Provider Not In PCP - General 04/23/19 04/09/22 Julio César Mcdonough MD [address] [place] [phone] PCP - General Internal Medicine 04/10/22 Drew Willett MD [address] [facility] [address] [place] [address] Cardiovascular Disease 01/06/19 3 Rhianna Tracey MD [address] [facility] [address] [place] [address] Resident Cardiology Hospitalist 02/12/19 3 Rhianna Tracey MD [address] [address] Primary Roofing Sales Representative Cardiovascular Disease 04/10/22 documented as of this encounter
--- OUTSIDE RECORDS SUMMARY | 2024-04-14 08:44 | XMS_ITS | Encounter Summary ---
Author Organization [employer] Address [address] [facility] [address] [place] [address] Care Team Providers Care Cabinet And Trim Installer Name Role Phone Julio César Hummel MD Primary Care Prov ider Reason for Visit * Reason Comments Med Refill Encounter Details Date Type Department Care Team (Late st Contact Info) Description 03/14/2024 Refill [facility] MED & PEDS [address] [place], [place] [phone] Julio César Hummel MD [address] [place] [address] Primary hypertension; Coronary artery disease involving [place] coronary artery of [place] heart without angina pectoris Social History Tobacco Use Types Packs/Day Years Used Date Smoking Tobacco: Unknown Depression Answer Date Recorded Patient Health Questionnaire-9 Score 0 08/06/2022 Housing Stability Answer Date Recorded What is your housing situation today? I have karla tinoco 11/28/[address] you li ve. Do you have problems with any of the following? None of the above 11/28/2022 Food Insecurity Answer Date Recorded Within the past 12 months, y ou worried that your food would run out before you got money to buy more: Never True 11/28/2022 Within the past 12 months,th e food you bought just didn't last and you didn't have enough money to get more: Never True Transportation Answer Date Recorded In the past 12 months, has l ack of transportation kept you from medical appts, meetings, work or from getting things needed for daily living? No 11/28/2022 Utilities Answer Date Recorded In the past 12 months, has t he electric, gas, oil or water company threatened to shut off services in your home? No 11/28/2022 Depression Answer Date Recorded Patient Health Questionnaire-2 Score 0 08/06/2022 Sex and Gender Information Value Date Recorded Sex Assigned at Male 12/10/2021 10:36 AM EDT Legal Sex Male 10:36 AM EDT Gender Identity Male 12/10/2021 10:36 AM EDT Sexual Orientation Straight 12/10/2021 10 :36 AM EDT documented as of this encounter Plan of Treatment Upcoming Encounters Date Type Department Care Team (Late st Contact Info) Description 07/19/2024 8:30 AM EDT Office Visit [facility] MED & PEDS [address] [place] [address] Julio César Hummel MD [address] [place] [address] documented as of this encounter Visit Diagnoses Diagnosis Primary hypertension Unspecified essential hypertension Coronary artery disease involving [place] coronary artery of [place] heart without angina pectoris documented in this encounter Additional Health Concerns Assessment Noted Time PHQ-9 Depression Total Score: 0 08/07/19 23 9:04 AM EDT documented as of this encounter Care Teams Cabinet And Trim Installer Relationship Specialty Start Date End Date Julio César Hummel MD [address] [place] [address] PCP - General Internal Medicine 07/02/23 documented as of this encounter
--- OUTSIDE RECORDS SUMMARY | 2024-04-14 08:44 | XMS_ITS | Encounter Summary ---
Author Organization [facility] Address [address] [place] [address] Care Team Providers Care Surgical Scheduler Name Role Phone Drew Willett MD Unavailable [phone] Rhianna Tracey MD Unavailable [phone] System, Provider Not In Primary Care Provider Un available Rhianna Tracey MD Unavailable [phone] Julio César Mcdonough MD Primary Care Prov ider Encounter Details Date Type Department Care Team (Late st Contact Info) Description 03/02/2021 Telephone [facility] Vascular & Endovascular Surgery [address] [place] [address] Marco A Yang MD [address] [place] [phone] Social History Tobacco Use Types Packs/Day Years [...] 07/07/2024 8:30 AM EDT Appointment [facility] Heart & Vascular [facility] - Electrophysiology [address] [place] [phone] Nettie Cunningham V., VENEER TRIMMER [address] [facility] [address] [place] [address] 04/06/2025 1:40 PM EST Appointment [facility] Heart Vascular [facility] - Electrophysiology [address] [place] [phone] Nettie Cunningham V., VENEER TRIMMER [address] [facility] [address] [place], [place] [phone] documented as of this encounter Visit Diagnoses Not on filedocumented in this encounter Care Teams Surgical Scheduler Relationship Specialty Start Date End Date System, Provider Not In PCP - General 04/23/19 04/09/22 Julio César Mcdonough MD [address] [place] [phone] PCP - General Internal Medicine 04/10/22 Drew Willett MD [address] [facility] [address] [place] [address] Cardiovascular Disease 01/06/19 3 Rhianna Tracey MD [address] [facility] [address] [place] [address] Resident Cardiology Hospitalist 02/12/19 3 Rhianna Tracey MD [address] [address] Primary Hiv Cts Specialist Cardiovascular Disease 04/10/22 documented as of this encounter
--- OUTSIDE RECORDS SUMMARY | 2024-04-14 08:44 | XMS_ITS | Encounter Summary ---
Author Organization Formerly [facility] Address [address] [place] [address] Care Team Providers Care Survey Analyst Name Role Phone Rhianna Tracey MD Unavailable [phone] Julio César Mcdonough MD Primary Care Prov ider Reason for Referral * Cardiovascular Test (Routine) - Closed Specialty Diagnoses / Procedures Referred By Pooja hawley Referred To Contact Diagnoses ICD (implantable cardioverter-defibrillator) in place Ventricular tachycardia (HCC) Procedures Cardiac Implantable Electronic Dev Eval Paola Simmons APRN [address] [place] [id number] Referral ID Status Reason Start Date Expiration Date Visits Re quested Visits Authorized [id number] Closed 04/09/2023 04/09/2024 1 1 * Cardiovascular Test (Routine) - Pending Review Specialty Diagnoses / Procedures Referred By Pooja hawley Referred To Contact Diagnoses ICD (implantable cardioverter-defibrillator) in place Procedures Cardiac Implantable Electronic Dev Eval 273-Days Nettie Cunningham APRN [address] [address] Referral ID Status Reason Start Date Expiration Date V isits Requested Visits Authorized [id number] Pending Review 04/04/2024 04/05/2025 1 1 * Cardiovascular Test (Routine) - Pending Review Specialty Diagnoses / Procedures Referred By Contac t Referred To Contact Diagnoses ICD (implantable cardioverter-defibrillator) in place Procedures Cardiac Implantable Electronic Dev Eval 182-Days Nettie Cunningham APRN [address] [facility] [address] [place] [address] Referral ID Status Reason Start Date Expiration Date V isits Requested Visits Authorized [id number] Pending Review 04/04/2024 04/05/2025 1 1 * Cardiovascular Test (Routine) - Pending Review Specialty Diagnoses / Procedures Referred By Contac t Referred To Contact Diagnoses ICD (implantable cardioverter-defibrillator) in place Procedures Cardiac Implantable Electronic Dev Eval 91-Days CAR Nettie Cunningham APRN [address] [facility] [address] [place] [address] Referral ID Status Reason Start Date Expiration Date V isits Requested Visits Authorized [id number] Pending Review 04/04/2024 04/05/2025 1 1 * Cardiovascular Test (Routine) - Pending Review Specialty Diagnoses / Procedures Referred By Contac t Referred To Contact Diagnoses ICD (implantable cardioverter-defibrillator) in place Procedures Cardiac Implantable Electronic Dev Lluviaal Nettie Cunningham APRN [address] [facility] [address] [place] [address] Referral ID Status Reason Start Date Expiration Date V isits Requested Visits Authorized [id number] Pending Review 04/04/2024 04/05/2025 1 1 Reason for Visit * Cardiovascular Test (Routine) - Closed Specialty Diagnoses / Procedures Referred By Contac t Referred To Contact Diagnoses ICD (implantable cardioverter-defibrillator) in place Ventricular tachycardia (HCC) Procedures Cardiac Implantable Electronic Dev Roseanna Paola Simmons, GRAIN CLE[employer]ER AND TRANSFER OPERATOR [address] [place] [address] Referral ID Status Reason Start Date Expiration Date Visits Re quested Visits Authorized [id number] Closed 04/09/2023 04/09/2024 1 1 Encounter Details Date Type Department Care Team (Late st Contact Info) Description 04/07/2024 1:28 PM EST - 04/07/2024 11:59 PM EST Hospital Encounter [facility] [place] - Electrophysiology [address] [place] [address] [address] [place] [id number] Paola Simmons, GRAIN CLEANER AND TRANSFER OPERATOR [address] [place], [place] [id number] Discharge Disposition: Home or Self Care Social History Tobacco Use Types Packs/Day Years [...] PM EDT documented as of this encounter Medications at Time of Discharge Medication Sig Dispensed Refills Start Date End Date aspirin 81 MG chewable tabletIndications:STEMI (ST elevation myocardial infarction) (HCC) Chew 1 tablet (81 mg total) daily. 90 tablet 3 02/11/2019 carvedilol (COREG) 3.125 MG tabletIndications:STEMI (ST elevation myocardial infarction) (HCC) Take 1 tablet (3.125 mg total) by mouth 2 (two) times a day with meals. 180 tablet 3 02/11/2019 clopidogrel (PLAVIX) 75 MG tabletIndications:STEMI (ST elevation myocardial infarction) (HCC) Take 1 tablet (75 mg total) by mouth daily. 90 tablet 3 02/11/2019 evolocumab (REPATHA) 140 MG/ML injectionIndications:Mixed hyperlipidemia,History of ST elevation myocardial infarction (STEMI),Coronary artery disease involving [place] coronary artery of [place] heart without angina pectoris Inject 1 mL (140 mg total) under the skin every 14 days (2 weeks). 2.1 mL 5 05/30/2020 ezetimibe (ZeTIA) 10 MG tabletIndications:Mixed hyperlipidemia Take 1 tablet (10 mg total) by mouth daily. 90 tablet 3 09/28/2020 losartan (COZAAR) 25 MG tabletIndications:STEMI (ST elevation myocardial infarction) (HCC) Take 1 tablet (25 mg total) by mouth nightly. 90 tablet 3 02/11/2019 rosuvastatin (CRESTOR) 40 MG tabletIndications:Coronary artery disease involving [place] coronary artery of [place] heart without angina pectoris Take 1 tablet (40 mg total) by mouth daily. 90 tablet 3 05/25/2020 thiamine (VITAMIN B-1) 100 MG tabletIndications:STEMI (ST elevation myocardial infarction) (HCC) Take 1 tablet (100 mg total) by mouth daily. 90 tablet 3 02/11/2019 documented as of this encounter Plan of Treatment Upcoming Encounters Date Type Department Care Team (Late st Contact Info) Description 07/07/2024 8:30 AM EDT Appointment [facility] Heart & Vascular [facility] - Electrophysiology [address] [place] [phone] Nettie Cunningham V., SANDEE [address] [place] [address] 04/06/2025 1:40 PM EST Appointment [facility] Heart & V[facility] - Electrophysiology [address] [place] [phone] Nettie Cunningham V., SANDEE [address] [place] [address] Scheduled Orders Name Type Priority Associated Diagnoses Orde r Schedule Cardiac Implantable Electronic Dev Eval Cardiac Services Routine ICD (implantable cardioverter-defibri llator) in place Expected: 04/04/2024, Expires: 04/22/2026 Cardiac Implantable Electronic Dev Eval 91-Days CAR Cardiac Services Routine ICD (implantable cardioverter-defibri llator) in place Expected: 07/04/2024, Expires: 04/22/2026 Cardiac Implantable Electronic Dev Eval 182-Days Cardiac Services Routine ICD (implantable cardioverter-defibri llator) in place Expected: 10/04/2024, Expires: 04/22/2026 Cardiac Implantable Electronic Dev Eval 273-Days Cardiac Services Routine ICD (implantable cardioverter-defibri llator) in place Expected: 01/04/2025, Expires: 04/22/2026 documented as of this encounter Procedures Procedure Name Priority Date/Time Associated Diagnosis Comments ICD SINGLE LEAD EVAL W/PROGRAM,99396 Routine 04/07/2024 4:19 PM EST ICD (implantable cardioverter-defibri llator) in place Ventricular tachycardia (HCC) documented in this encounter Results * ICD SINGLE LEAD EVAL W/PROGRAM,[id number] (04/07/2024 4:19 PM EST) Date Time Interrogation Session 20,250,226,133,9 45 PACEART Implantable Pulse Generator Shoe Reconditioner Medtronic PACEART Implantable Pulse Generator Model [id number] Visia AF MRI VR PACEART Implantable Pulse Generator Serial Number [id number] PACEART Implantable Pulse Generator Type Defibrillator PACEART Implantable Pulse Generator Implant Date ,,,190,0 00 PACEART Implantable Lead Shoe Reconditioner Medtronic PACEART Implantable Lead Model [id number] Sprint Quattro Secure S MRI SureScan PACEART Implantable Lead Serial Number [id number] PACEART Implantable Lead Implant Date ,191,205,190,0 00 PACEART Implantable Lead Polarity Type Tripolar Lead PACEART Implantable Lead Location Detail 1 UNKNOWN PACEART Implantable Lead Special Function 62 cm PACEART Implantable Lead Location Right Ventricle PACEART Implantable Lead Connection Status Connected PACEART [place] Setting Mode (NBG Code) VVI PACEART [place] Setting Lower Rate Limit 40 {beats}/ min PACEART [place] Setting Hysterisis Rate DISABLED PACEART RV Sensing Polarity Bipolar PACEART RV Sensing Anode Location Right Ventricle PACEART RV Sensing Anode Terminal Ring PACEART RV Sensing Cathode Location Right Ventricle PACEART RV Sensing Cathode Terminal Tip PACEART RV Sensitivity 0.3 mV PACEART RV Pacing Polarity Bipolar PACEART Lead Channel Setting Pacing Anode Location Right Ventricle PACEART RV Pacing Anode Terminal Ring PACEART Lead Channel Setting Sensing Cathode Location Right Ventricle PACEART RV Pacing Cathode Terminal Tip PACEART RV Pacing Pulse Width 0.4 ms PACEART RV Pacing Amplitude 2.75 V PACEART Zone Setting Type Category VF PACEART Zone Setting Vendor Type Category VF PACEART Zone Setting Detection Interval 300 ms PACEART Zone Setting Detection Beats Numerator 30 {beats} PACEART Zone Setting Detection Beats Denominator 40 {beats} PACEART Zone Setting Type Category VT PACEART Zone Setting Vendor Type Category FastVT PACEART Zone Setting Detection Interval Blank PACEART Zone Setting Type Category VT PACEART Zone Setting Vendor Type Category VT PACEART Zone Setting Detection Interval 340 ms PACEART Zone Setting Detection Beats Numerator 24 {beats} PACEART Zone Setting Detection Beats Denominator 24 {beats} PACEART Zone Setting Type Category VT PACEART Zone Setting Vendor Type Category MonVT PACEART Zone Setting Detection Interval 400 ms PACEART Zone Setting Detection Beats Numerator 32 {beats} PACEART Zone Setting Detection Beats Denominator 32 {beats} PACEART Zone Setting Type Category ATRIAL_FIBRILLAT ION PACEART Zone Setting Vendor Type Category FastATAF PACEART Zone Setting Type Category AT/AF PACEART MDT_PROG_TACHY_Z ONE_THERAPIES_1_ SEQUENCEID 0 PACEART MDT_PROG_TACHY_Z ONE_THERAPIES_1_ STATUS Active PACEART ATP Therapy type 1 Burst PACEART MDT_PROG_TACHY_Z ONE_THERAPIES_2_ SEQUENCEID 1 PACEART MDT_PROG_TACHY_Z ONE_THERAPIES_2_ STATUS Active PACEART MDT_PROG_TACHY_Z ONE_THERAPIES_2_ SHOCKTHERAPY_ENE RGY 35 J PACEART MDT_PROG_TACHY_Z ONE_THERAPIES_2_ SHOCKTHERAPY_PAT HWAY_POLE_ANODE_ LOCATION_1 Right Ventricle PACEART MDT_PROG_TACHY_Z ONE_THERAPIES_2_ SHOCKTHERAPY_PAT HWAY_POLE_ANODE_ ELECTRODE_1 Coil PACEART MDT_PROG_TACHY_Z ONE_THERAPIES_2_ SHOCKTHER_PATH_P OLE_CATH_ELEC_1 Can PACEART MDT_PROG_TACHY_Z ONE_THERAPIES_3_ SEQUENCEID 2 PACEART MDT_PROG_TACHY_Z ONE_THERAPIES_3_ STATUS Active PACEART MDT_PROG_TACHY_Z ONE_THERAPIES_3_ SHOCKTHERAPY_ENE RGY 35 J PACEART MDT_PROG_TACHY_Z ONE_THERAPIES_3_ SHOCKTHERAPY_PAT HWAY_POLE_ANODE_ LOCATION_1 Right Ventricle PACEART MDT_PROG_TACHY_Z ONE_THERAPIES_3_ SHOCKTHERAPY_PAT HWAY_POLE_ANODE_ ELECTRODE_1 Coil PACEART MDT_PROG_TACHY_Z ONE_THERAPIES_3_ SHOCKTHER_PATH_P OLE_CATH_ELEC_1 Can PACEART MDT_PROG_TACHY_Z ONE_THERAPIES_4_ SEQUENCEID 3 PACEART MDT_PROG_TACHY_Z ONE_THERAPIES_4_ STATUS Active PACEART MDT_PROG_TACHY_Z ONE_THERAPIES_4_ SHOCKTHERAPY_ENE RGY 35 J PACEART MDT_PROG_TACHY_Z ONE_THERAPIES_4_ SHOCKTHERAPY_PAT HWAY_POLE_ANODE_ LOCATION_1 Right Ventricle PACEART MDT_PROG_TACHY_Z ONE_THERAPIES_4_ SHOCKTHERAPY_PAT HWAY_POLE_ANODE_ ELECTRODE_1 Coil PACEART MDT_PROG_TACHY_Z ONE_THERAPIES_4_ SHOCKTHER_PATH_P OLE_CATH_ELEC_1 Can PACEART MDT_PROG_TACHY_Z ONE_THERAPIES_5_ SEQUENCEID 4 PACEART MDT_PROG_TACHY_Z ONE_THERAPIES_5_ STATUS Active PACEART MDT_PROG_TACHY_Z ONE_THERAPIES_5_ SHOCKTHERAPY_ENE RGY 35 J PACEART MDT_PROG_TACHY_Z ONE_THERAPIES_5_ SHOCKTHERAPY_PAT HWAY_POLE_ANODE_ LOCATION_1 Right Ventricle PACEART MDT_PROG_TACHY_Z ONE_THERAPIES_5_ SHOCKTHERAPY_PAT HWAY_POLE_ANODE_ ELECTRODE_1 Coil PACEART MDT_PROG_TACHY_Z ONE_THERAPIES_5_ SHOCKTHER_PATH_P OLE_CATH_ELEC_1 Can PACEART MDT_PROG_TACHY_Z ONE_THERAPIES_6_ SEQUENCEID 5 PACEART MDT_PROG_TACHY_Z ONE_THERAPIES_6_ STATUS Active PACEART MDT_PROG_TACHY_Z ONE_THERAPIES_6_ SHOCKTHERAPY_ENE RGY 35 J PACEART MDT_PROG_TACHY_Z ONE_THERAPIES_6_ SHOCKTHERAPY_PAT HWAY_POLE_ANODE_ LOCATION_1 Right Ventricle PACEART MDT_PROG_TACHY_Z ONE_THERAPIES_6_ SHOCKTHERAPY_PAT HWAY_POLE_ANODE_ ELECTRODE_1 Coil PACEART MDT_PROG_TACHY_Z ONE_THERAPIES_6_ SHOCKTHER_PATH_P OLE_CATH_ELEC_1 Can PACEART Therapy Status Active PACEART MDT_PROG_TACHY_Z ONE_THERAPIES_7_ SHOCKTHERAPY_ENE RGY 35 J PACEART MDT_PROG_TACHY_Z ONE_THERAPIES_7_ SHOCKTHERAPY_PAT HWAY_POLE_ANODE_ LOCATION_1 Right Ventricle PACEART MDT_PROG_TACHY_Z ONE_THERAPIES_7_ SHOCKTHERAPY_PAT HWAY_POLE_ANODE_ ELECTRODE_1 Coil PACEART MDT_PROG_TACHY_Z ONE_THERAPIES_7_ SHOCKTHER_PATH_P OLE_CATH_ELEC_1 Can PACEART Tachy zone therapies summary Burst, 35J X 6 PACEART MDT_PROG_TACHY_Z ONE_THERAPIES_1_ SEQUENCEID 1 PACEART MDT_PROG_TACHY_Z ONE_THERAPIES_1_ STATUS Inactive PACEART MDT_PROG_TACHY_Z ONE_THERAPIES_2_ SEQUENCEID 2 PACEART MDT_PROG_TACHY_Z ONE_THERAPIES_2_ STATUS Inactive PACEART MDT_PROG_TACHY_Z ONE_THERAPIES_3_ SEQUENCEID 3 PACEART MDT_PROG_TACHY_Z ONE_THERAPIES_3_ STATUS Inactive PACEART MDT_PROG_TACHY_Z ONE_THERAPIES_4_ SEQUENCEID 4 PACEART MDT_PROG_TACHY_Z ONE_THERAPIES_4_ STATUS Inactive PACEART MDT_PROG_TACHY_Z ONE_THERAPIES_5_ SEQUENCEID 5 PACEART MDT_PROG_TACHY_Z ONE_THERAPIES_5_ STATUS Inactive PACEART MDT_PROG_TACHY_Z ONE_THERAPIES_6_ SEQUENCEID 6 PACEART MDT_PROG_TACHY_Z ONE_THERAPIES_6_ STATUS Inactive PACEART Tachy zone therapies summary Disabled PACEART MDT_PROG_TACHY_Z ONE_THERAPIES_1_ SEQUENCEID 1 PACEART MDT_PROG_TACHY_Z ONE_THERAPIES_1_ STATUS Active PACEART ATP Therapy type 1 Burst PACEART MDT_PROG_TACHY_Z ONE_THERAPIES_1_ ATPTHERAPY_NUMBE ROFSEQUENCES 3 PACEART MDT_PROG_TACHY_Z ONE_THERAPIES_2_ SEQUENCEID 2 PACEART MDT_PROG_TACHY_Z ONE_THERAPIES_2_ STATUS Active PACEART MDT_PROG_TACHY_Z ONE_THERAPIES_2_ SHOCKTHERAPY_ENE RGY 35 J PACEART MDT_PROG_TACHY_Z ONE_THERAPIES_2_ SHOCKTHERAPY_PAT HWAY_POLE_ANODE_ LOCATION_1 Right Ventricle PACEART MDT_PROG_TACHY_Z ONE_THERAPIES_2_ SHOCKTHERAPY_PAT HWAY_POLE_ANODE_ ELECTRODE_1 Coil PACEART MDT_PROG_TACHY_Z ONE_THERAPIES_2_ SHOCKTHER_PATH_P OLE_CATH_ELEC_1 Can PACEART MDT_PROG_TACHY_Z ONE_THERAPIES_3_ SEQUENCEID 3 PACEART MDT_PROG_TACHY_Z ONE_THERAPIES_3_ STATUS Active PACEART MDT_PROG_TACHY_Z ONE_THERAPIES_3_ SHOCKTHERAPY_ENE RGY 35 J PACEART MDT_PROG_TACHY_Z ONE_THERAPIES_3_ SHOCKTHERAPY_PAT HWAY_POLE_ANODE_ LOCATION_1 Right Ventricle PACEART MDT_PROG_TACHY_Z ONE_THERAPIES_3_ SHOCKTHERAPY_PAT HWAY_POLE_ANODE_ ELECTRODE_1 Coil PACEART MDT_PROG_TACHY_Z ONE_THERAPIES_3_ SHOCKTHER_PATH_P OLE_CATH_ELEC_1 Can PACEART MDT_PROG_TACHY_Z ONE_THERAPIES_4_ SEQUENCEID 4 PACEART MDT_PROG_TACHY_Z ONE_THERAPIES_4_ STATUS Active PACEART MDT_PROG_TACHY_Z ONE_THERAPIES_4_ SHOCKTHERAPY_ENE RGY 35 J PACEART MDT_PROG_TACHY_Z ONE_THERAPIES_4_ SHOCKTHERAPY_PAT HWAY_POLE_ANODE_ LOCATION_1 Right Ventricle PACEART MDT_PROG_TACHY_Z ONE_THERAPIES_4_ SHOCKTHERAPY_PAT HWAY_POLE_ANODE_ ELECTRODE_1 Coil PACEART MDT_PROG_TACHY_Z ONE_THERAPIES_4_ SHOCKTHER_PATH_P OLE_CATH_ELEC_1 Can PACEART MDT_PROG_TACHY_Z ONE_THERAPIES_5_ SEQUENCEID 5 PACEART MDT_PROG_TACHY_Z ONE_THERAPIES_5_ STATUS Active PACEART MDT_PROG_TACHY_Z ONE_THERAPIES_5_ SHOCKTHERAPY_ENE RGY 35 J PACEART MDT_PROG_TACHY_Z ONE_THERAPIES_5_ SHOCKTHERAPY_PAT HWAY_POLE_ANODE_ LOCATION_1 Right Ventricle PACEART MDT_PROG_TACHY_Z ONE_THERAPIES_5_ SHOCKTHERAPY_PAT HWAY_POLE_ANODE_ ELECTRODE_1 Coil PACEART MDT_PROG_TACHY_Z ONE_THERAPIES_5_ SHOCKTHER_PATH_P OLE_CATH_ELEC_1 Can PACEART MDT_PROG_TACHY_Z ONE_THERAPIES_6_ SEQUENCEID 6 PACEART MDT_PROG_TACHY_Z ONE_THERAPIES_6_ STATUS Active PACEART MDT_PROG_TACHY_Z ONE_THERAPIES_6_ SHOCKTHERAPY_ENE RGY 35 J PACEART MDT_PROG_TACHY_Z ONE_THERAPIES_6_ SHOCKTHERAPY_PAT HWAY_POLE_ANODE_ LOCATION_1 Right Ventricle PACEART MDT_PROG_TACHY_Z ONE_THERAPIES_6_ SHOCKTHERAPY_PAT HWAY_POLE_ANODE_ ELECTRODE_1 Coil PACEART MDT_PROG_TACHY_Z ONE_THERAPIES_6_ SHOCKTHER_PATH_P OLE_CATH_ELEC_1 Can PACEART Tachy zone therapies summary Burst(3), 35J X 5 PACEART Tachy zone therapies summary Monitored PACEART Tachy zone therapies summary Monitored PACEART RV Lead Impedance Value 323 ohm PACEART RV Lead Impedance Value 247 ohm PACEART RV Sensing Intrinsic Amplitude 10.75 mV PACEART RV Sensing Intrinsic Amplitude 8.875 mV PACEART RV Lead Pacing Threshold Amplitude 1.875 V PACEART RV Lead Pacing Threshold Pulse Width 0.4 ms PACEART RV Stat leads lowpower [place] Ring PACEART RV Stat leads lowpower [place] Tip PACEART Defib leadImpedance 66 ohm PACEART MDT_STAT_LEADS_H IGHPOWERCHANNEL_ IMPEDANCES_START DATE 20,250,226,134,0 44 PACEART STAT leads highpow [place] imped pole electrode Can PACEART STAT leads highpow [place] imped pole electrode Coil PACEART Battery Status OK PACEART Battery Remaining Longevity 74 mo PACEART Battery Voltage 2.99 V PACEART RV Percent Paced-since last reset 0.01 % PACEART AT/AF [place] Percent 0 % PACEART RV recent shocks delivered 0 PACEART Recent Shocks Aborted 0 PACEART RV ATP Deliver-recent 0 PACEART Episode Statistic Recent Count 0 PACEART STAT Episode type AT/AF PACEART Episode Statistic Recent Count 0 PACEART STAT Episode type SVT PACEART Episode Statistic Recent Count 1 PACEART STAT Episode type VT PACEART Episode Statistic Recent Count 0 PACEART STAT Episode type VF PACEART Episode Statistic Recent Count 0 PACEART STAT Episode type VT PACEART Episode Statistic Recent Count 0 PACEART STAT Episode type VT PACEART Episode Statistic Recent Count 0 PACEART STAT Episode type [place] PACEART STAT Episode type AT/AF PACEART STAT Episode type SVT PACEART STAT Episode type VT PACEART STAT Episode type VF PACEART STAT Episode type [place] PACEART STAT Episode type VT PACEART STAT Episode type VT PACEART Anatomical Region Laterality Modality Cardiac Device 04/07/2024 1:39 PM EST Narrative 04/08/2024 3:10 PM EST OBSERVATIONS: Routine single lead ICD evaluation performed. Battery & lead parameters evaluated & within normal range. Battery longevity 6.1 years. Normal ICD function. RV pacing: <0.1%. Incision is clean, dry and intact. PRESENTING RHYTHM: VS @ 65 bpm NEW EVENTS SINCE 02/06/24 : None PATIENT EDUCATION: Ongoing education for: device function, home monitor function, arrhythmia teaching, evaluation results, ICD shock protocol. CHANGES MADE THIS SESSION: None RECOMMENDATIONS: Continue routine monitoring. Will follow in clinic in one year. Donna Esteves RN Paola Simmons APRN CV CARDIAC SERVIC ES ORDERABLES documented in this encounter Visit Diagnoses Diagnosis ICD (implantable cardioverter-defibrillator) in place- Primary Ventricular tachycardia (HCC) Paroxysmal ventricular tachycardia documented in this encounter Care Teams Survey Analyst Relationship Specialty Start Date End Date Julio César Mcdonough MD [address] [place] [phone] PCP - General Internal Medicine 04/10/22 Rhianna Tracey MD Primary Registered Representative Cardiovascular Disease 04/10/22 documented as of this encounter
--- OUTSIDE RECORDS SUMMARY | 2024-04-14 08:44 | XMS_ITS | Encounter Summary ---
Author Organization [employer] Address [address] [facility] [address] [place] [address] Care Team Providers Care Special Needs Teacher Name Role Phone Julio César Hummel MD Primary Care Prov ider Reason for Visit * Reason Onset Date Comments Med Refill Derm Appt. 03/29/2024 Encounter Details Date Type Department Care Team ([facility] st Contact Info) Description 03/29/2024 Refill [facility] [address] [place], [place] [id number] Julio César Hummel MD [address] [place] [address] Primary hypertension; Coronary artery disease involving [place] coronary artery of [place] heart without angina pectoris Social History Tobacco Use Types Packs/Day Years Used Date Smoking Tobacco: Unknown Depression Answer Date Recorded Patient Health Questionnaire-9 Score 0 04/09/2024 Patient Health Questionnaire-9 Score 0 04/09/2024 Last PHQ-9: Questionnaire Data Not on file 0 04/09/2024 Housing Stability Answer Date Recorded What is your housing situation today? I have karla tinoco 04/09/[address] you li ve. Do you have problems with any of the following? None of the above 04/09/2024 Food Insecurity Answer Date Recorded Within the past 12 months, y ou worried that your food would run out before you got money to buy more: Never True 04/09/2024 Within the past 12 months,th e food you bought just didn't last and you didn't have enough money to get more: Never True Transportation Answer Date Recorded In the past 12 months, has l ack of transportation kept you from medical appts, meetings, work or from getting things needed for daily living? No 04/09/2024 Utilities Answer Date Recorded In the past 12 months, has t he electric, gas, oil or water company threatened to shut off services in your home? No 04/09/2024 Depression Answer Date Recorded Patient Health Questionnaire-2 Score 0 04/09/2024 Internet Access Answer Date Recorded Internet Access Q1 Yes 04/09/2024 Internet Access Q2 Not on file 04/09/2024 Sex and Gender Information Value Date Recorded Sex Assigned at Male 12/10/2021 10:36 AM EDT Legal Sex Male 10:36 AM EDT Gender Identity Male 12/10/2021 10:36 AM EDT Sexual Orientation Straight 12/10/2021 10 :36 AM EDT documented as of this encounter Miscellaneous Notes * Telephone Encounter - Holley Mejía [place] - 04/12/2024 11:02 AM EST Called pt. To schedule derm appt/actinic keratosis per lloyd Lam . documented in this encounter Plan of Treatment Upcoming Encounters Date Type Department Care Team (Late st Contact Info) Description 07/19/2024 8:30 AM EDT Office Visit [facility] [address] [place] [address] Julio César Hummel MD [address] [place] [address] documented as of this encounter Visit Diagnoses Diagnosis Primary hypertension Unspecified essential hypertension Coronary artery disease involving [place] coronary artery of [place] heart without angina pectoris documented in this encounter Additional Health Concerns Assessment Noted Time PHQ-9 Depression Total Score: 0 08/07/19 23 9:04 AM EDT documented as of this encounter Care Teams Special Needs Teacher Relationship Specialty Start Date End Date Julio César Hummel MD [address] [place] [address] PCP - General Internal Medicine 07/02/23 documented as of this encounter
--- OUTSIDE RECORDS SUMMARY | 2024-04-14 08:44 | XMS_ITS | Encounter Summary ---
Author Organization [employer] Address [address] [facility] [address] [place] [address] Care Team Providers Care Pacu Nurse Name Role Phone Julio César Hummel MD Primary Care Prov ider Julio César Hummel MD Primary Care Prov ider Reason for Visit * Reason Onset Date Comments Medication Question 05/30/2022 Encounter Details Date Type Department Care Team ([facility] Contact Info) Description 05/30/2022 Telephone [facility] [address] [place], [place] [phone] Julio César Hummel MD [address] [place] [address] Medication Question Social History Tobacco Use Types Packs/Day Years Used Date Smoking Tobacco: Never Assessed Sex and Gender Information Value Date Recorded Sex Assigned at Male 12/10/2021 10:36 AM EDT Legal Sex Male 10:36 AM EDT Gender Identity Male 12/10/2021 10:36 AM EDT Sexual Orientation Straight 12/10/2021 10 :36 AM EDT documented as of this encounter Miscellaneous Notes * Telephone Encounter - Jesse Caldera RN - 05/30/2022 1:43 PM EDT Call to [facility]. States pt is scheduled for a procedure on 06/04/22. Would like to know if PCP agreeson stopping Plavix x3 days prior to the procedure. She also states the pt has a pacemaker. Inquiring on who the pt follows for Cardiology. RN advised that per [employer] system, pt followed by Paola Simmons in [place], [place]. Provided contact number [phone] and [phone]. She verbalizes understanding and states she will contact the office to inquire if pt is cleared for the procedure. 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 Please contact [facility] at [phone] documented in this encounter Plan of Treatment Upcoming Encounters Date Type Department Care Team (Late st Contact Info) Description 07/19/2024 8:30 AM EDT Office Visit [facility] [address] [place] [address] Julio César Hummel MD [address] [place] [address] documented as of this encounter Visit Diagnoses Not on filedocumented in this encounter Care Teams Pacu Nurse Relationship Specialty Start Date End Date Julio César Hummel MD [address] [place] [address] PCP - General Internal Medicine 02/26/19 06/18/23 Julio César Hummel MD [address] [place] [address] PCP - General Internal Medicine 07/02/23 documented as of this encounter
--- OUTSIDE RECORDS SUMMARY | 2024-04-14 08:44 | XMS_ITS | Clinical Summary ---
Author Organization [facility] [address] [facility] Address [address] [place] [phone] Phone Care Team Providers Care Threader Operator Name Role Phone Angie Hi MD Primary Care Provider Medications atorvastatin (LIPITOR) 80 mg tablet Take 1 tablet (80 mg total) by mouth 1 (one) time each day. 4 Active carvediloL (COREG) 3.125 mg tablet Take 1 tablet (3.125 mg total) by mouth every 12 (twelve) hours. 0 Active diclofenac (VOLTAREN) 1 % topical gel Apply 1 Application topically 1 (one) time each day. Active aspirin 81 mg EC tablet Take 1 tablet (81 mg total) by mouth 1 (one) time each day. Active fluorouraciL (EFUDEX) 5 % cream Apply 1 Application topically 1 (one) time each day. Active levothyroxine sodium (TIROSINT) 75 mcg capsule Take 1 capsule (75 mcg total) by mouth 1 (one) time each day. Active losartan (COZAAR) 25 mg tablet Take 1 tablet (25 mg total) by mouth daily. 0 Active nicotine (Nicotrol) 10 mg inhaler Inhale 2 puffs by mouth every 4 hours. 3 Active pantoprazole (PROTONIX) 40 mg EC tablet Take 1 tablet (40 mg total) by mouth 1 (one) time each day. 4 Active sildenafiL (VIAGRA) 50 mg tablet Take 1 tablet (50 mg total) by mouth as needed. 3 Active clopidogreL (PLAVIX) 75 mg tablet Take 1 tablet (75 mg total) by mouth 1 (one) time each day. 90 tablet 5 Active clopidogreL (PLAVIX) 75 mg tablet Take 1 tablet (75 mg total) by mouth 1 (one) time each day. 0 04/05/19 25 Discontin ued(Reord er) Active Problems Problem Noted Date Diagnosed Date S/P primary angioplasty with coronary stent 04/2023 Hyperlipidemia 05/14/2023 Erectile dysfunction 05/14/2023 Acquired hypothyroidism 02/19/2022 Overview (11/03/2023): Last Assessment & Plan: New labs will be ordered for guidance of therapy, he refers taking levothyroxine 125mcg daily Primary hypertension 11/25/2019 Overview (11/03/2023): Last Assessment & Plan: Controlled, reinforced low sodium diet and exercise as tolerated, will order new cmp, follow up in 4 months Implantable cardioverter-defibrillator (ICD) in situ 07/22/2019 Encounters Date Type Department Care Team Description 01/29/2024 Telephone Adult Medicine [address] [phone] Angie Hi MD from Last 3 Months Surgical History Surgery Date Site/Laterality Comments HERNIA REPAIR PROCEDURE: PA REPAIR FIRST ABDOMINAL WALL HERNIA Family History Medical History Relation Name Comments Other: HEART ATTACK Father Ovarian cancer Mother Other: HEART PROBLEMS Paternal Grandfather Relation Name Status Comments Father Mother Paternal Grandfather Social History Tobacco Use Types Packs/Day Years Used Date Smoking Tobacco: Former Smokeless Tobacco: Never Alcohol Use Standard Drinks/Week Comments Not Currently 0 (1 standard drink = 0.6 oz pur e alcohol) Sex and Gender Information Value Date Recorded Sex Assigned at Not on file Legal Sex Male 5:55 AM EST Gender Identity Not on file Sexual Orientation Not on file Obstetrics History Last Filed Vital Signs Vital Sign Reading Time Taken Comments Blood Pressure 126/78 10/02/2023 10:55 AM EDT Pulse 65 10/02/2023 10:55 AM EDT Temperature - - Respiratory Rate - - Oxygen Saturation - - Inhaled Oxygen Concentration - - Weight 72.1 kg (159 lb) 10/02/2023 10:55 AM EDT Height 172.7 cm (5' 8 ) 08/27/2023 9:08 AM EDT Body Mass Index 24.18 08/27/2023 9:08 AM EDT Plan of Treatment Upcoming Encounters Date Type Department Care Team (Late st Contact Info) Description 05/28/2024 7:45 AM EDT Office Visit Adult Medicine [facility] [address] [place] [address] Angie Hi MD [address] [place] [address] Health Maintenance Due Date Last Done Comments DTaP,Tdap,and Td Vaccines (1 - Tdap) 07/08/1974 Pneumococcal Vaccine: 50+ Years (1 of 1 - PCV) 07/08/2005 Zoster Vaccines (1 of 2) 07/08/2005 Abdominal Aortic Aneurysm (AAA) Screen 01/13/2022 Colorectal Cancer Screening: Colonoscopy 01/13/2022 Falls Risk Assessment 01/13/2022 Hepatitis C Screening 01/13/2022 Medicare Annual Wellness Visit 01/13/2022 Social Influencers of Health Screening 01/13/2022 Depression Screening 08/07/2023 08/06/2022 COVID-19 Vaccine (4 - 2023-2 5 season) 2023 01/29/2021, 06/30/2020, 06/01/2020 Influenza Vaccine (#1) 2023 Hypertension/CHF/CAD Annual BMP Blood Test 08/14/2024 08/15/2023 Cholesterol Screening (Lipid Panel) 08/14/2028 08/15/2023, 02/05/2023 RSV Immunization Patients 60 + Years Old (1 - 1-dose 75+ series) 07/08/2030 HIB Vaccines Aged Out No longer eligi ble based on patient's age to complete this topic HPV Vaccines Aged Out No longer eligi ble based on patient's age to complete this topic Hepatitis A Vaccines Aged Out No long er eligible based on patient's age to complete this topic Hepatitis B Vaccines Aged Out No long er eligible based on patient's age to complete this topic IPV Vaccines Aged Out No longer eligi ble based on patient's age to complete this topic MMR Vaccines Aged Out No longer eligi ble based on patient's age to complete this topic Meningococcal ACWY Vaccine Aged Out N o longer eligible based on patient's age to complete this topic Meningococcal B Vacine Aged Out No lo nger eligible based on patient's age to complete this topic RSV Immunization Patients Under 20 months Aged Out No longer eligible b ased on patient's age to complete this topic Varicella Vaccines Aged Out No longer eligible based on patient's age to complete this topic Insurance MEDICAID - [place] MEDICARE Care Teams Threader Operator Relationship Specialty Start Date End Date Angie Hi MD [address] [place] [address] PCP - General 04/21/23
--- OUTSIDE RECORDS SUMMARY | 2024-04-14 08:44 | XMS_ITS | Clinical Summary ---
Author Organization [facility] Address [address] [place] [address] Care Team Providers Care Dry Pan Operator Name Role Phone Rhianna Tracey MD Unavailable [phone] Julio César Mcdonough MD Primary Care Prov ider Allergies No known active allergies Medications Medication Sig Dispensed Refills Start Date End Date Status aspirin 81 MG chewable tabletIndications:STEMI (ST elevation myocardial infarction) (HCC) Chew 1 tablet (81 mg total) daily. 90 tablet 3 02/11/2019 Active carvedilol (COREG) 3.125 MG tabletIndications:STEMI (ST elevation myocardial infarction) (HCC) Take 1 tablet (3.125 mg total) by mouth 2 (two) times a day with meals. 180 tablet 3 02/11/2019 Active clopidogrel (PLAVIX) 75 MG tabletIndications:STEMI (ST elevation myocardial infarction) (HCC) Take 1 tablet (75 mg total) by mouth daily. 90 tablet 3 02/11/2019 Active losartan (COZAAR) 25 MG tabletIndications:STEMI (ST elevation myocardial infarction) (HCC) Take 1 tablet (25 mg total) by mouth nightly. 90 tablet 3 02/11/2019 Active thiamine (VITAMIN B-1) 100 MG tabletIndications:STEMI (ST elevation myocardial infarction) (HCC) Take 1 tablet (100 mg total) by mouth daily. 90 tablet 3 02/11/2019 Active rosuvastatin (CRESTOR) 40 MG tabletIndications:Coron elva artery disease involving [place] coronary artery of [place] heart without angina pectoris Take 1 tablet (40 mg total) by mouth daily. 90 tablet 3 05/25/2020 Active evolocumab (REPATHA) 140 MG/ML injectionIndications:Mi xed hyperlipidemia,History of ST elevation myocardial infarction (STEMI),Coronary artery disease involving [place] coronary artery of [place] heart without angina pectoris Inject 1 mL (140 mg total) under the skin every 14 days (2 weeks). 2.1 mL 5 05/30/2020 Active ezetimibe (ZeTIA) 10 MG tabletIndications:Mixed hyperlipidemia Take 1 tablet (10 mg total) by mouth daily. 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 08/24/2019 Coronary artery disease invo lving [place] coronary artery of [place] heart without angina pectoris 07/22/2019 ICD (implantable cardioverte r-defibrillator), single, in situ 07/22/2019 Mixed hyperlipidemia 07/22/2019 Cardiogenic shock 01/11/2019 Other specified hypothyroidism 01/11/[address] elevation myocardial infarction ([place]) 01/05/2019 Ventricular tachycardia 01/05/2019 History of cardiac arrest 01/05/2019 Lactic acidosis 01/05/2019 Acute respiratory failure with hypoxia and hyper capnia 01/05/2019 Smoker 01/05/2019 Abdominal hernia 01/05/2019 Ventricular fibrillation 01/05/2019 Overview (01/15/2019): Added automatically from request for surgery [id number] Resolved Problems Problem Noted Date Diagnosed Date Resolved Date ST elevation myocardial infa rction involving left circumflex coronary artery 01/05/2019 02/11/19 20 Encounters Date Type Department Care Team Description 04/07/2024 1:28 PM EST - 04/07/2024 11:59 PM EST Hospital Encounter [facility] [place] - Electrophysiology [address] [place] [address] [place] [id number] Paola Simmons, REFERRAL SPECIALIST Discharge Disposition: Home or Self Care 04/07/2024 Travel from Last 3 Months Immunizations Name Administration Dates Next Due Influenza Inactivated/Split Preservative Free IM 01/15/2019() Social History Tobacco Use Types Packs/Day Years [...] not to disclose 2023 4:16 PM EDT Last Filed Vital Signs Vital Sign Reading Time Taken Comments Blood Pressure 105/63 05/25/2020 1:25 PM EDT Pulse 71 05/25/2020 1:25 PM EDT Temperature 36.1 ??C (96.9 ??F) 05/25/2020 1:25 PM ED T Respiratory Rate 20 01/16/2019 7:00 AM EST Oxygen Saturation 100% 05/25/2020 1:25 PM EDT Inhaled Oxygen Concentration - - Weight 73 kg (161 lb) 05/25/2020 1:25 PM EDT Height 172.7 cm (5' 8 ) 05/25/2020 1:25 PM EDT Body Mass Index 24.48 05/25/2020 1:25 PM EDT Plan of Treatment Upcoming Encounters Date Type Department Care Team (Late st Contact Info) Description 07/07/2024 8:30 AM EDT Appointment [facility] - Electrophysiology [address] [place] [id number] Nettie Cunningham V., SANDEE [address] [place] [address] 04/06/2025 1:40 PM EST Appointment [facility] - Electrophysiology [address] [place] [phone] Nettie Cunningham APRN [address] [place] [address] [phone] (work) Health Maintenance Due Date Last Done Comments Hepatitis C Virus Screening 1955 DTaP/Tdap/Td Vaccines (1 - Tdap) 07/08/1974 Pneumococcal Vaccines 50+ (1 of 2 - PCV) 07/08/1974 Colonoscopy 07/08/2000 Zoster (Shingles) Vaccine (1 of 2) 07/08/2005 RSV Vaccine 60 years and older and Patients (1 - Risk 60-74 years 1-dose series) 2015 Influenza Vaccine 09/11/2023 COVID-19 Vaccine ( - 2023- season) 2023 01/29/2021, 06/30/2020, 06/01/2020 Abdominal Aortic Aneurysm (AAA) Screening Discontinued 01/06/2019 Hepatitis B Vaccines Aged Out No long er eligible based on patient's age to complete this topic Medical Devices Implanted Type Area Ancient Art Curator Device Identifier Shelf Expiration Date Model / Serial / Lot [id number] Defibrillator Cardiac Visia Af Mri Df4 Vr - [id number] Implanted:Qty: 1 on 01/15/2019 by Dallin Colbert MD at [facility] ICD [employer] 02/24/2020 [id number] / [id number] / [id number] Lead Icd 62cm 8.6fr Sq Std Hlx Isoglide Strd Elute Jolene Etfe - [id number] Implanted:Qty: 1 on 01/15/2019 by Dallin Colbert MD at [facility] Lead [employer] 11/09/2020 [id number]-[id number] / [id number] / [id number] System Coronary Stent 20mm 3.5mm Sng Mnrl Everolimus Pltn Cr - [id number] Implanted:Qty: 1 on 01/05/2019 by Isrrael Hernandez MD at [facility] Stent [employer] [id number] 06/15/2020 [id number] / / [id number] Procedures Procedure Name Priority Date/Time Associated Diagnosis Comments ICD SINGLE LEAD EVAL W/PROGRAM,04118 Routine 04/07/2024 4:19 PM EST ICD (implantable cardioverter-defibri llator) in place Ventricular tachycardia (HCC) CT CHEST/ABDOMEN+PELVI S W/O CONTRAST STAT 01/06/2019 2:54 AM EST from Last 3 Months or Most Recently Relevant to Health Maintenance Results * ICD SINGLE LEAD EVAL W/PROGRAM,68962 (04/07/2024 4:19 PM EST) Date Time Interrogation Session [id number] 45 PACEART Implantable Pulse Generator Ancient Art Curator Medtronic PACEART Implantable Pulse Generator Model [id number] Visia AF MRI VR PACEART Implantable Pulse Generator Serial Number [id number] PACEART Implantable Pulse Generator Type Defibrillator PACEART Implantable Pulse Generator Implant Date 20,191,205,190,0 00 PACEART Implantable Lead Ancient Art Curator Medtronic PACEART Implantable Lead Model [id number] Sprint Quattro Secure S MRI SureScan PACEART Implantable Lead Serial Number [id number] PACEART Implantable Lead Implant Date 20,191,205,190,0 00 PACEART Implantable Lead Polarity Type Tripolar [...] Paced-since last reset 0.01 % PACEART AT/AF [place] Percent 0 % PACEART RV recent shocks [...] Simmons APRN CV CARDIAC SERVIC ES ORDERABLES * CT Chest/abdomen+pelvis w/o contrast (01/06/2019 2:54 AM EST) Anatomical Region Laterality Modality Chest, Abdomen, Pelvis Computed Tomography 01/06/2019 2:54 AM EST Impressions 01/06/2019 7:15 AM EST Dense posterior bilateral pulmonary consolidations with air bronchogram. Additional nonspecific patchy and groundglass opacities within the bilateral lungs which are overall most suggestive of edema. No acute findings identified in the abdomen/pelvis. Sequelae of recent IV contrast administration. Jose Armando Turpin MD Resident Physician I personally reviewed the images and, if necessary, I edited the report. I agree with the report as now presented. Narrative 01/06/2019 7:15 AM EST EXAMINATION: CT CHEST/ABDOMEN+PELVIS W/O CONTRAST CLINICAL INFORMATION: Status post cardiac arrest. COMPARISON: 08/14/2017 TECHNIQUE: Multidetector volumetric imaging was performed from the thoracic inlet to the pubic symphysis following the administration of: Oral contrast: 2% barium sulfate suspension. Sagittal and coronal reformatted images were obtained on the technologist workstation. Total exam dose-length product 649 mGy-cm FINDINGS: THYROID/UPPER NECK: The visualized portion of the thyroid is normal in appearance. CHEST: Lungs: Endotracheal tube is approximately 4 cm above the sara. Enteric tube with the tip overlying the region of the stomach. Dense bilateral posterior lower lung consolidations with air bronchograms. There are additional bilateral patchy solid and groundglass opacities scattered throughout the bilateral lungs predominantly in the upper lungs. Mediastinum: The cardiac structures are normal in appearance. No mediastinal free fluid or gas. No pericardial effusion. No pathologically enlarged hilar, or mediastinal lymphadenopathy. Chest Wall/Axilla: No pathologically enlarged axillary lymph nodes. ABDOMEN/PELVIS: Liver, Biliary Ducts, and Gallbladder: Small hypoattenuation measuring 0.6 cm within the right hepatic lobe which is too small to further characterize and PET/CT. Otherwise, the liver is normal in size and attenuation without additional focal hepatic lesions. No biliary ductal dilatation. Gallbladder is filled with dense material likely vicarious excretion of contrast from recent cardiac catheterization. Pancreas: The pancreas is normal in appearance. Adrenal Glands: The adrenal glands are normal in appearance. Spleen: The spleen is normal in appearance. Kidneys and Ureters: Bilateral kidneys demonstrate symmetrical nephrogram with contrast seen in the ureters bilaterally. No hydroureteronephrosis. Contrast is likely from recent cardiac catheterization. Urinary Bladder: Partially decompressed with Barahona catheter. Contrast is seen within the bladder. Gastrointestinal System: Enteric tube with tip overlying the region of stomach. Nondistended small bowel loops. No abnormally dilated loop of bowel to suggest an obstruction. There is stool seen throughout the colon. The distal colon is decompressed. No evidence of obstruction. The appendix is not definitely visualized; however, there is no significant inflammatory change in its expected location to suggest appendicitis. Abdominal Wall: No significant hernia is appreciated. Pelvic Viscera: Bilateral hydrocele. Intra-abdominal and Retroperitoneal Spaces: No intra-abdominal free fluid collections or gas. No mesenteric, retroperitoneal, or inguinal lymphadenopathy. VASCULATURE: Severe vascular calcification seen throughout the aorta and the branches including the coronary arteries. There is a right sided femoral catheter extending to the level of the inferior cavoatrial junction. MUSCULOSKELETAL: Severe multilevel degenerative changes of the spine most pronounced at L4-L5. No lytic or sclerotic osseous lesions demonstrated. No soft tissue masses demonstrated. Procedure Note Michael Blue MD - 01/06/2019 EXAMINATION: CT CHEST/ABDOMEN+PELVIS W/O CONTRAST CLINICAL INFORMATION: Status post cardiac arrest. COMPARISON: 08/14/2017 TECHNIQUE: Multidetector volumetric imaging was performed from the thoracic inlet tothe pubic symphysis following the administration of: Oral contrast: 2% barium sulfate suspension. Sagittal and coronal reformatted images were obtained on thetechnologist workstation. Total exam dose-length product 649 mGy-cm FINDINGS: THYROID/UPPER NECK: The visualized portion of the thyroid is normal in appearance. CHEST: Lungs: Endotracheal tube is approximately 4 cm above the sara. Enteric tubewith the tip overlying the region of the stomach. Dense bilateral posteriorlower lung consolidations with air bronchograms. There are additionalbilateral patchy solid and groundglass opacities scattered throughout thebilateral lungs predominantly in the upper lungs. Mediastinum: The cardiac structures are normal in appearance. No mediastinal free fluidor gas. No pericardial effusion. No pathologically enlarged hilar, ormediastinal lymphadenopathy. Chest Wall/Axilla: No pathologically enlarged axillary lymph nodes. ABDOMEN/PELVIS: Liver, Biliary Ducts, and Gallbladder: Small hypoattenuation measuring 0.6 cm within the right hepatic lobe whichis too small to further characterize and PET/CT. Otherwise, the liver isnormal in size and attenuation without additional focal hepatic lesions. Nobiliary ductal dilatation. Gallbladder is filled with dense material likelyvicarious excretion of contrast from recent cardiac catheterization. Pancreas: The pancreas is normal in appearance. Adrenal Glands: The adrenal glands are normal in appearance. Spleen: The spleen is normal in appearance. Kidneys and Ureters: Bilateral kidneys demonstrate symmetrical nephrogram with contrast seen inthe ureters bilaterally. No hydroureteronephrosis. Contrast is likely fromrecent cardiac catheterization. Urinary Bladder: Partially decompressed with Barahona catheter. Contrast is seen within the bladder. Gastrointestinal System: Enteric tube with tip overlying the region of stomach. Nondistendedsmall bowel loops. No abnormally dilated loop of bowel to suggest anobstruction. There is stool seen throughout the colon. The distal colon isdecompressed. No evidence of obstruction. The appendix is not definitely visualized;however, there is no significant inflammatory change in its expected location to suggest appendicitis. Abdominal Wall: No significant hernia is appreciated. Pelvic Viscera: Bilateral hydrocele. Intra-abdominal and Retroperitoneal Spaces: No intra-abdominal free fluid collections or gas. No mesenteric, retroperitoneal, or inguinal lymphadenopathy. VASCULATURE: Severe vascular calcification seen throughout the aorta and the branches including the coronary arteries. There is a right sided femoral catheter extending to the level of the inferior cavoatrial junction. MUSCULOSKELETAL: Severe multilevel degenerative changes of the spine most pronounced atL4-L5. No lytic or sclerotic osseous lesions demonstrated. No soft tissuemasses demonstrated. IMPRESSION: Dense posterior bilateral pulmonary consolidations with air bronchogram. Additional nonspecific patchy and groundglass opacities within thebilateral lungs which are overall most suggestive of edema. No acute findings identified in the abdomen/pelvis. Sequelae of recentIV contrast administration. Jose Armando Turpin MD Resident Physician I personally reviewed the images and, if necessary, I edited the report.I agree with the report as now presented. Mariposa Stiles APRN [place] [facility] ORDERABLES from Last 3 Months or Most Recently Relevant to Health Maintenance Advance Directives Documents on File Type Date Recorded Patient Chip Applying Machine Tender Expl anation Advance Directive-Scan 01/22/2019 10:08 AM LIVING WILL * Full Code (Latest Code Status on File) Date Activated Date Inactivated Comments 01/15/2019 1:05 PM * Full Code Date Activated Date Inactivated Comments 01/06/2019 4:49 AM 01/15/2019 1:05 PM Question Answer Comments Decision Thoroughly Discussed with: Surrogate Name of Legally Authorized Chip Applying Machine Tender: Tommy sarabia [place] * Full Code Date Activated Date Inactivated Comments 01/05/2019 9:10 PM 01/06/2019 4:49 AM * Full Code Date Activated Date Inactivated Comments 01/05/2019 8:55 PM 01/05/2019 9:10 PM Question Answer Comments Decision Thoroughly Discussed with: PatientSurro gate Name of Legally Authorized Chip Applying Machine Tender: Son-i n-law Care Teams Dry Pan Operator Relationship Specialty Start Date End Date Julio César Mcdonough MD [address] [place] [phone] PCP - General Internal Medicine 04/10/22 Rhianna Tracey MD Primary Body Designer Cardiovascular Disease 04/10/22
--- OUTSIDE RECORDS SUMMARY | 2024-04-14 08:44 | XMS_ITS | Clinical Summary ---
Author Organization [employer] Address [address] [facility] [address] [place] [address] Care Team Providers Care Cereal Chemist Name Role Phone Julio César Hummel MD Primary Care Prov ider Allergies No known active allergies Medications Diclofenac Sodium (Voltaren) 1 % gel Apply topically every 8 (eight) hours. 07/15/19 21 Active folic acid (Folvite) 1 MG tablet Take 1 tablet by mouth 1 (one) time each day. 04/09/19 20 Active ketotifen (Zaditor) 0.025 % ophthalmic solution Administer 1 drop into affected eye(s) every 12 (twelve) hours. 04/15/19 21 Active nicotine (Nicoderm, Step 2) 14 MG/24HR patch Place 1 patch on the skin 1 (one) time each day. 10/31/19 21 Active thiamine (Vitamin B-1) 100 MG tablet Take 1 tablet by mouth 1 (one) time each day. 05/30/19 22 Active Blood Pressure Monitoring (Blood Press Monitor/M-L Cuff) miscIndications: Primary hypertension 1 kit in the morning. 1 each 08/07/19 23 Active sildenafil (Viagra) 50 MG tabletIndication s:Erectile dysfunction due to arterial insufficiency TAKE 1 TABLET 1 HOUR BEFORE SEXUAL RELATIONS ONCE DAILY NEEDED. 20 tablet 3 02/06/20 23 Active levothyroxine (Synthroid, Levoxyl) 125 MCG tablet TAKE 1 TABLET BY MOUTH EVERY DAY BEFORE BREAKFAST 90 tablet 3 08/22/19 24 Active atorvastatin (Lipitor) 80 MG tabletIndication s:Primary hypertension,Cor onary artery disease involving atka coronary artery of atka heart without angina pectoris TAKE 1 TABLET (80 MG) BY MOUTH IN THE MORNING 90 tablet 1 02/10/20 24 2024 Active losartan (Cozaar) 25 MG tabletIndication s:Primary hypertension,Cor onary artery disease involving atka coronary artery of atka heart without angina pectoris TAKE 1 TABLET BY MOUTH EVERY DAY IN THE MORNING 90 tablet 1 02/10/20 24 Active pantoprazole (ProtoNix) 40 MG EC tabletIndication s:Primary hypertension,Cor onary artery disease involving atka coronary artery of atka heart without angina pectoris TAKE 1 TABLET BY MOUTH EVERY DAY BEFORE BREAKFAST 90 tablet 1 02/15/19 25 Active carvedilol (Coreg) 3.125 MG tabletIndication s:Primary hypertension,Cor onary artery disease involving atka coronary artery of atka heart without angina pectoris TAKE 1 TABLET BY MOUTH EVERY 12 HOURS 180 tablet 1 02/15/19 25 Active Aspirin Low Dose 81 MG EC tabletIndication s:Primary hypertension,Cor onary artery disease involving atka coronary artery of atka heart without angina pectoris TAKE 1 TABLET (81 MG) BY MOUTH IN THE MORNING 90 tablet 1 03/23/19 25 Active Diclofenac Sodium 1 % gelIndications:A ctinic keratoses To use once a day to the affected areas x 8 weeks. 300 g 2 04/09/19 25 Active ezetimibe (Zetia) 10 MG tablet Take 1 tablet (10 mg) by mouth Once per day. 90 tablet 3 04/09/19 25 2025 Active clopidogrel (Plavix) 75 MG tablet Take 1 tablet (75 mg) by mouth Once per day. 90 tablet 3 04/09/19 25 2025 Active capsicum (Zostrix) 0.075 % topical cream Apply topically every 8 (eight) hours. 56 g 3 04/09/19 25 Active fluorouracil (Efudex) 5 % solution Apply topically every 12 (twelve) hours. 10 mL 3 04/09/19 25 Active capsicum (Zostrix) 0.075 % topical cream Apply topically every 8 (eight) hours. 02/07/20 21 2024 Discontinued(R eorder (will not trigger notification to Pharmacy)) ezetimibe (Zetia) 10 MG tablet Take 1 tablet by mouth 1 (one) time each day. 11/02/19 22 2024 Discontinued(R eorder (will not trigger notification to Pharmacy)) fluorouracil (Efudex) 5 % solution Apply topically every 12 (twelve) hours. 02/07/20 21 2024 Discontinued(R eorder (will not trigger notification to Pharmacy)) Diclofenac Sodium 1 % gelIndications:A ctinic keratoses TO USE ONCE A DAY TO THE AFFECTED AREAS X 8 WEEKS 300 g 2 11/29/19 23 2024 Discontinued(R eorder (will not trigger notification to Pharmacy)) Aspirin Low Dose 81 MG EC tabletIndication s:Primary hypertension,Cor onary artery disease involving atka coronary artery of atka heart without angina pectoris TAKE 1 TABLET (81 MG) BY MOUTH IN THE MORNING 90 tablet 1 08/11/19 24 2024 Discontinued clopidogrel (Plavix) 75 MG tablet Take 75 mg by mouth Once per day. 05/08/19 22 2024 Discontinued(R eorder (will not trigger notification to Pharmacy)) Active Problems Problem Noted Date Diagnosed Date S/P primary angioplasty with coronary stent 04/2023 History of rectal abscess 04/02/2022 Assessment & Plan (06/03/2022 1:24 PM EDT): Patient evaluated by surgery, he will undergo procedure tomorrow, will follow up reccomendations Assessment & Plan (04/02/2022 1:36 PM EST): Patient refers about 5 years ago he had a rectal bump, which was drained, patient refers experiencing same symptoms, refers draining minimal fluid, will refer to surgery, no reported fever/chills Actinic keratoses 04/02/2022 Assessment & Plan (04/02/2022 1:39 PM EST): Will refer to dermatology for reevaluation and follow up Left hand pain 04/02/2022 Assessment & Plan (04/02/2022 1:40 PM EST): Seems to be trigger finger, will refer to hand surgeon for evaluation Prostate cancer screening 03/10/2022 Assessment & Plan (03/10/2022 4:39 PM EST): Will order prostate cancer screening Acquired hypothyroidism 02/19/2022 Assessment & Plan (04/09/2024 10:14 AM EST): New labs will be ordered for guidance of therapy Assessment & Plan (02/05/2023 10:39 AM EST): New labs will be ordered for guidance of therapy, he refers taking levothyroxine 125mcg daily Assessment & Plan (08/06/2022 9:52 AM EDT): On levothyroxine 100mcg, denied palpitations, weight gain/loss, no cold/heat intolerance, new labs ordered for guidance of therapy Assessment & Plan (06/03/2022 1:23 PM EDT): Patient taking thyroid oral replacement daily, will order new labs for guidance of therapy Assessment & Plan (02/19/2022 5:41 PM EST): Will start on levothyroxine 75mcg, will follow up in 2 months to repeat blood work Erectile dysfunction due to arterial insufficien cy 02/19/2022 Assessment & Plan (02/19/2022 5:40 PM EST): Will renew sildenafil Mixed hyperlipidemia 02/19/2022 Assessment & Plan (06/03/2022 1:23 PM EDT): On statin therapy, new labs will be ordered for guidance of therapy Assessment & Plan (02/19/2022 5:38 PM EST): He stopped taking atorvastatin for over 6 months, reinforced medication adherance will follow up in 2 months Smoker 02/19/2022 Assessment & Plan (02/19/2022 5:43 PM EST): Will refer for lung cancer screening Primary hypertension 01/30/2022 Assessment & Plan (04/09/2024 10:12 AM EST): Told to keep a bp log, keep low sodium diet and exercise as tolerated, will order routine blood work follow up in 3 months Assessment & Plan (02/05/2023 10:38 AM EST): Controlled, reinforced low sodium diet and exercise as tolerated, will order new cmp, follow up in 4 months Assessment & Plan (04/02/2022 1:38 PM EST): Will order a new bp monitor Assessment & Plan (03/10/2022 4:38 PM EST): Patient does not have a bp machine, told to pick it up at [facility], keep a bp log, target <140/90, new labs order will be place, will follow up in 1 month Assessment & Plan (02/19/2022 5:39 PM EST): Controlled, no episode of chest pain/shortness of breath, no changes will be made Coronary artery disease invo lving atka coronary artery of atka heart without angina pectoris 01/30/2022 Assessment & Plan (04/09/2024 10:12 AM EST): Denied chest pain, shortness of breath, follow up cardiology Assessment & Plan (04/02/2022 1:38 PM EST): Refers has appointment at [facility] next week april 10, will follow up reccomendations Assessment & Plan (03/10/2022 4:39 PM EST): Told to follow up with biometrics consultant, no new episode of chest pain or shortness of breath Assessment & Plan (02/19/2022 5:40 PM EST): Patient has not seen a biometrics consultant in over 1 year, told to reschedule appointment Implantable cardioverter-defibrillator (ICD) in situ 07/22/2019 Assessment & Plan (04/09/2024 10:14 AM EST): Had icd interrogation, refers has 6yrs of life, no shock given History of ST elevation myocardial infarction ([facility] [place]) 01/05/2019 Encounters Date Type Department Care Team Description 04/09/2024 9:45 AM EST Telemedicine [facility] [address] [place] [address] Julio César Hummel MD Primary hypertension (Primary Dx); Actinic keratoses; Coronary artery disease involving atka coronary artery of atka heart without angina pectoris; Implantable cardioverter-defibrillat or (ICD) in situ; Acquired hypothyroidism 04/09/2024 Travel 03/29/2024 Refill [facility] [address] [place] [address] Julio César Hummel MD Primary hypertension; Coronary artery disease involving atka coronary artery of atka heart without angina pectoris 03/14/2024 Refill [facility] [address] [place] [address] Julio César Hummel MD Primary hypertension; Coronary artery disease involving atka coronary artery of atka heart without angina pectoris 02/16/2024 Refill [facility] [address] [place] [address] Julio César Hummel MD Primary hypertension; Coronary artery disease involving atka coronary artery of atka heart without angina pectoris 02/15/2024 Refill [facility] [address] [place] [address] Julio César Hummel MD Primary hypertension; Coronary artery disease involving atka coronary artery of atka heart without angina pectoris 02/11/2024 Refill [facility] [address] [place] [address] Julio César Hummel MD Primary hypertension; Coronary artery disease involving atka coronary artery of atka heart without angina pectoris 02/10/2024 Refill [facility] [address] [place] [address] Julio César Hummel MD Primary hypertension; Coronary artery disease involving atka coronary artery of atka heart without angina pectoris 01/16/2024 Telephone [facility] [address] [place] [address] Julio César Hummel MD from Last 3 Months Immunizations Name Administration Dates Next Due Moderna Covid-19 Vaccine + 01/29/2021,07/01/19 21,06/01/2020 Social History Tobacco Use Types Packs/Day Years Used Date Smoking Tobacco: Unknown Tobacco Cessation:Counseling Given: No Depression Answer Date Recorded Patient Health Questionnaire-9 Score 0 04/09/2024 Patient Health Questionnaire-9 Score 0 04/09/2024 Last PHQ-9: Questionnaire Data Not on file 0 04/09/2024 Housing Stability Answer Date Recorded What is your housing situation today? I have karla alejandrina 04/09/[address] you li [...] Orientation Straight 12/10/2021 10 :36 AM EDT Last Filed Vital Signs Vital Sign Reading Time Taken Comments Blood Pressure 138/75 02/05/2023 10:37 AM EST Pulse 67 02/05/2023 10:37 AM EST Temperature 36.2 ??C (97.1 ??F) 12/03/2022 8:59 AM ED T Respiratory Rate 18 12/03/2022 8:59 AM EDT Oxygen Saturation 98% 12/03/2022 8:59 AM EDT Inhaled Oxygen Concentration - - Weight 71.2 kg (157 lb) 12/03/2022 8:59 AM EDT Height 165.1 cm (5' 5 ) 12/03/2022 8:59 AM EDT Body Mass Index 26.13 12/03/2022 8:59 AM EDT Plan of Treatment Upcoming Encounters Date Type Department Care Team ([facility] st Contact Info) Description 07/19/2024 8:30 AM EDT Office Visit [facility] [address] [place] [address] Julio César Hummel MD [address] [place] [address] Health Maintenance Due Date Last Done Comments CT Colonography 1955 Colonoscopy 1955 Colorectal Cancer Screening 1955 FIT DNA/Cologuard 1955 FIT 1955 FOBT 1955 Sigmoidoscopy 1955 Hepatitis C Screening 07/08/1973 DTaP/Tdap/Td Vaccines (1 - Tdap) 07/08/1974 Pneumococcal Vaccine: 50+ Years (1 of 2 - PCV) 07/08/1974 Zoster Vaccines (1 of 2) 07/08/2005 RSV Patients and Patients Aged 60 years or older (1 - Risk 60-74 years 1-dose series) 2015 COVID-19 Vaccine ( season) 2023 01/29/2021, 06/30/2020, 06/01/2020 Influenza Vaccine (#1) 2023 Tobacco Screening 10/23/2023 10/22/2022 Alcohol/Substance Use Screening 04/09/2025 04/09/2024 Depression Screening 04/09/2025 04/09/2024, 04/09/19 25 SDOH Screening 04/09/2025 04/09/2024 Lipid Panel 02/06/2028 02/05/2023, 08/10, 06/26/2022, Additional history exists HIB Vaccines Aged Out No longer eligi [...] patient's age to complete this topic Meningococcal Vaccine Aged Out No pat dinora eligible based on patient's age to complete this topic RSV under 20 months Aged Out No longe r eligible based on patient's age to complete this topic Rotavirus Vaccines Aged Out No longer eligible based on patient's age to complete this topic Procedures Procedure Name Priority Date/Time Associated Diagnosis Comments LIPID PANEL, STANDARD Routine 02/05/2023 2:48 PM EST Mixed hyperlipidemia from Last 3 Months or Most Recently Relevant to Health Maintenance Results * (ABNORMAL) Lipid Panel, Standard (02/05/2023 2:48 PM EST) Triglycerides 101 <150 mg/dL [facility] Comment:Desirable Triglyceri de: less than 150 mg/dLBorderline High Triglyceride 150-199 mg/dLHigh Triglyceride: 200-499 mg/dLVery High Triglyceride: greater than or equal to 5OO mg/dL Cholesterol 174 <200 mg/dL [facility] Comment:Desirable Cholestero l: less than 200 mg/dLBorderline High Cholesterol: 200-239 mg/dLHigh Cholesterol: greater than 239 mg/dL LDL Cholesterol Calculated 110(H) <100 mg/dL [facility] Comment:Desirable LDL: less than 100 mg/dLNear Optimal/Above Optimal LDL: 110- 129 mg/dLBorderline High LDL: 130-159 mg/dLHigh LDL: 160-189 mg/dLVery High LDL: greater than or equal to 190 mg/dL HDL Cholesterol 44 >40 mg/dL [facility] Comment:Desirable HDL: great er than 40 mg/dL Note: This HDL assay may give artificially low results in patients with liver disease. Blood Venous blood specimen / Unknown 02/05/2023 2:48 PM EST 02/05/2023 5:24 PM EST Julio César Mcdonough MD LAB BLOOD ORDERABL ES Final Result [facility] [address] [place] [address] [phone] from Last 3 Months or Most Recently Relevant to Health Maintenance Insurance MEDICARE [facility] MEDICARE Care Teams Cereal Chemist Relationship Specialty Start Date End Date Julio César Hummel MD [address] [place] [id number] PCP - General Internal Medicine 07/02/23
--- OUTSIDE RECORDS SUMMARY | 2024-04-14 08:44 | XMS_ITS | Encounter Summary ---
Author Organization [employer] Address [address] [facility] [address] [place] [address] Care Team Providers Care Hot Molder Name Role Phone Julio César Hummel MD Primary Care Prov ider Encounter Details Date Type Department Care Team (Latest Contact Info) Description 04/09/2024 Travel Social History Tobacco Use Types Packs/Day Years Used Date Smoking Tobacco: Unknown Depression Answer Date Recorded Patient Health Questionnaire-9 Score 0 04/09/2024 Patient Health Questionnaire-9 Score 0 04/09/2024 Last PHQ-9: Questionnaire Data Not on file 0 04/09/2024 Housing Stability Answer Date Recorded What is your housing situation today? I have krala alejandrina 04/09/[address] you [...] Description 07/19/2024 8:30 AM EDT Office Visit [facility] [address] [place] [address] Julio César Hummel MD [address] [place] [address] documented as of this encounter Visit Diagnoses Not on filedocumented in this encounter Additional Health Concerns Assessment Noted Time PHQ-9 Depression Total Score: 0 04/09/19 25 9:30 AM EST documented as of this encounter Care Teams Hot Molder Relationship Specialty Start Date End Date Julio César Hummel MD [address] [place] [address] PCP - General Internal Medicine 07/02/23 documented as of this encounter
--- OUTSIDE RECORDS SUMMARY | 2024-04-14 08:44 | XMS_ITS | Encounter Summary ---
Author Organization [facility] Address [address] [place] [address] Care Team Providers Care Hyster Machine Operator Name Role Phone Rhianna Tracey MD Unavailable [phone] Julio César Mcdonough MD Primary Care Prov ider Encounter Details Date Type Department Care Team (Latest Contact Info) Description 04/07/2024 Travel Social History Tobacco Use Types Packs/Day [...] Info) Description 07/07/2024 8:30 AM EDT Appointment [facility] Heart [facility] V[facility] [place] - Electrophysiology [address] [place] [address] [place] [phone] Nettie Cunningham V., BENCH LOOM WEAVER [address] [facility] [address] [place] [address] 04/06/2025 1:40 PM EST Appointment [facility] Heart [facility] V[facility] [place] - Electrophysiology [address] [place] [address] [address] [place] [phone] Nettie Cunningham V., BENCH LOOM WEAVER [address] [facility] [address] [place], [place] [id number] documented as of this encounter Visit Diagnoses Not on filedocumented in this encounter Care Teams Hyster Machine Operator Relationship Specialty Start Date End Date Julio César Mcdonough MD [address] [place] [phone] PCP - General Internal Medicine 04/10/22 Rhianna Tracey MD Primary Rug Cutter Cardiovascular Disease 04/10/22 documented as of this encounter
--- OUTSIDE RECORDS SUMMARY | 2024-04-14 08:44 | XMS_ITS | Encounter Summary ---
Author Organization [employer] Address [address] [facility] [address] [place] [address] Care Team Providers Care Creative Services Manager Name Role Phone Julio César Hummel MD Primary Care Prov ider Julio Césra Hummel MD Primary Care Prov ider Reason for Visit * Reason Comments Med Change Request Encounter Details Date Type Department Care Team ([facility] st Contact Info) Description 12/03/2022 Refill [facility] [address] [place], [place] [phone] Ashlie Vázquez MD [address] [place] [address] Actinic keratoses Social History Tobacco Use Types Packs/Day Years [...] Description 07/19/2024 8:30 AM EDT Office Visit [facility] [address] [place] [address] Julio César Hummel MD [address] [place] [address] documented as of this encounter Visit Diagnoses Diagnosis Actinic keratoses Actinic keratosis documented in this encounter Additional Health Concerns Assessment Noted Time PHQ-9 Depression Total Score: 0 08/07/19 23 9:04 AM EDT documented as of this encounter Care Teams Creative Services Manager Relationship Specialty Start Date End Date Julio César Hummel MD [address] [place] [address] PCP - General Internal Medicine 02/26/19 06/18/23 Julio César Hummel MD [address] [place] [address] PCP - General Internal Medicine 07/02/23 documented as of this encounter
--- OUTSIDE RECORDS SUMMARY | 2024-04-14 08:44 | XMS_ITS | Encounter Summary ---
Author Organization [employer] Address [address] [facility] 7[address] [place] [address] Care Team Providers Care Er Manager Name Role Phone Julio César Hummel MD Primary Care Prov ider Encounter Details Date Type Department Care Team (Latest Contact Info) Description 04/09/2024 9:45 AM EST Telemedicine [facility] MED & PED[facility] [address] [place], [place] [phone] Julio César Hummel MD [address] [place] [address] Primary hypertension (Primary Dx); Actinic keratoses; Coronary artery disease involving [place] coronary artery of [place] heart without angina pectoris; Implantable cardioverter-defibrilla tor (ICD) in situ; Acquired hypothyroidism Social History Tobacco Use Types Packs/Day Years [...] AM EDT documented as of this encounter Progress Notes * Julio César Mcdonough MD - 04/09/2024 9:45 AM EST Subjective Patient ID: Flavio Miranda is a 68 y.o. male who presents for No chief complaint on file.. Hypertension This is a chronic problem. Pertinent negatives include no chest pain, headaches, palpitations, peripheral edema or shortness of breath. Review of Systems Respiratory: Negative for shortness of breath. Cardiovascular: Negative for chest pain and palpitations. Neurological: Negative for headaches. Objective Physical Exam Neurological: General: No focal deficit present. Mental Status: He is oriented to person, place, and time. Psychiatric: Mood and Affect: Mood normal. Behavior: Behavior normal. Assessment/Plan Problem List Items Addressed This Visit Primary hypertension - Primary Told to keep a bp log, keep low sodium diet and exercise as tolerated, will order routine blood work follow up in 3 months Relevant Orders CBC auto differential Comprehensive Metabolic Panel Lipid Panel, Standard Coronary artery disease involving [place] coronary artery of [place] heart without angina pectoris Denied chest pain, shortness of breath, follow up cardiology Relevant Medications clopidogrel (Plavix) 75 MG tablet Acquired hypothyroidism New labs will be ordered for guidance of therapy Relevant Orders TSH W/Reflex to FT4 Actinic keratoses Relevant Medications Diclofenac Sodium 1 % gel Implantable cardioverter-defibrillator (ICD) in situ Had icd interrogation, refers has 6yrs of life, no shock given documented in this encounter Miscellaneous Notes * Assessment & Plan Note - Julio César Mcdonough MD - 04/09/2024 10:14 AM ESTAssociated Problem(s): Acquired hypothyroidism New labs will be ordered for guidance of therapy * Assessment & Plan Note - Julio César Mcdonough MD - 04/09/2024 10:14 AM ESTAssociated Problem(s): Implantable cardioverter-defibrillator (ICD) in situ Had icd interrogation, refers has 6yrs of life, no shock given * Assessment & Plan Note - Julio César Mcdonough MD - 04/09/2024 10:12 AM ESTAssociated Problem(s): Coronary artery disease involving [place] coronary artery of [place] heart without angina pectoris Denied chest pain, shortness of breath, follow up cardiology * Assessment & Plan Note - Julio César Mcdonough MD - 04/09/2024 10:12 AM ESTAssociated Problem(s): Primary hypertension Told to keep a bp log, keep low sodium diet and exercise as tolerated, will order routine blood work follow up in 3 months documented in this encounter Plan of Treatment Upcoming Encounters Date Type Department Care Team (Late st Contact Info) Description 07/19/2024 8:30 AM EDT Office Visit [facility] [address] [place] [address] Julio César Hummel MD [address] [place] [address] Scheduled Orders Name Type Priority Associated Diagnoses Orde r Schedule CBC auto differential Lab Routine Primary hypertension Expected: 04/09/2024 (Approximate), Expires: 04/09/2025 Comprehensive Metabolic Panel Lab Routine Primary hypertension Expected: 04/09/2024 (Approximate), Expires: 04/09/2025 Lipid Panel, Standard Lab Routine Primary hypertension Expected: 04/09/2024 (Approximate), Expires: 04/09/2025 TSH W/Reflex to FT4 Lab Routine Acquired hypothyroidism Expected: 04/09/2024 (Approximate), Expires: 04/09/2025 documented as of this encounter Visit Diagnoses Diagnosis Primary hypertension- Primary Unspecified essential hypertension Actinic keratoses Actinic keratosis Coronary artery disease involving [place] coronary artery of [place] heart without angina pectoris Implantable cardioverter-defibrillator (ICD) in situ Acquired hypothyroidism Unspecified hypothyroidism documented in this encounter Additional Health Concerns Assessment Noted Time PHQ-9 Depression Total Score: 0 04/09/19 25 9:30 AM EST documented as of this encounter Care Teams Er Manager Relationship Specialty Start Date End Date Julio César Hummel MD [address] [place] [id number] PCP - General Internal Medicine 07/02/23 documented as of this encounter
--- OUTSIDE RECORDS SUMMARY | 2024-04-14 08:44 | XMS_ITS | Encounter Summary ---
Author Organization [employer] Address [address] [facility] 7t [place] [address] Care Team Providers Care Fashion Design Professor Name Role Phone Julio César Hummel MD Primary Care Prov ider Reason for Visit * Reason Comments Med Refill Encounter Details Date Type Department Care Team (Late st Contact Info) Description 02/15/2024 Refill [facility] CHC MED & PEDS [address] [place], [place] [phone] Julio César Hummel MD 505 [place] [address] Primary hypertension; Coronary artery disease involving [place] coronary artery of [place] heart without angina pectoris Social History Tobacco [...] 07/19/2024 8:30 AM EDT Office Visit [facility] MED & PEDS [address] [place] [address] Julio César Hummel MD 505 [place] [address] documented as of this encounter Visit Diagnoses Diagnosis Primary hypertension Unspecified essential hypertension Coronary artery disease involving [place] coronary artery of [place] heart without angina pectoris documented in this encounter Additional Health Concerns Assessment Noted Time PHQ-9 Depression Total Score: 0 08/07/19 23 9:04 AM EDT documented as of this encounter Care Teams Fashion Design Professor Relationship Specialty Start Date End Date Julio César Hummel MD 505 [place] [address] PCP - General Internal Medicine 07/02/23 documented as of this encounter
--- OUTSIDE RECORDS SUMMARY | 2024-04-14 08:44 | XMS_ITS | Encounter Summary ---
Author Organization [employer] Address [address] [facility] 7t [place] [address] Care Team Providers Care Primary Counselor Name Role Phone Julio César Hummel MD Primary Care Prov ider Reason for Visit * Reason Comments Med Refill Encounter Details Date Type Department Care Team (Late st Contact Info) Description 02/11/2024 Refill [facility] CHC MED & PEDS [address] [place], [place] [phone] Julio César Hummel MD 505 [place] [address] Primary hypertension; Coronary artery disease involving [place] coronary artery of [place] heart without angina pectoris Social History Tobacco [...] Description 07/19/2024 8:30 AM EDT Office Visit [facility] MED & PEDS [address] [place] [address] Julio César Hummel MD 505 [place] [address] documented as of this encounter Visit Diagnoses Diagnosis Primary hypertension Unspecified essential hypertension Coronary artery disease involving [place] coronary artery of [place] heart without angina pectoris documented in this encounter Additional Health Concerns Assessment Noted Time PHQ-9 Depression Total Score: 0 08/07/19 23 9:04 AM EDT documented as of this encounter Care Teams Primary Counselor Relationship Specialty Start Date End Date Julio César Hummel MD [address] [place] [address] PCP - General Internal Medicine 07/02/23 documented as of this encounter
--- OUTSIDE RECORDS SUMMARY | 2024-04-14 08:44 | XMS_ITS | Encounter Summary ---
Author Organization [facility] Address [address] [place] [address] Care Team Providers Care Circuit Breaker Assembler Name Role Phone Drew Willett MD Unavailable [phone] Rhianna Tracey MD Unavailable + [phone] System, Provider Not In Primary Care Provider Un available Rhianna Tracey MD Unavailable + [phone] Julio César Mcdonough MD Primary Care Prov ider Encounter Details Date Type Department Care Team (Late st Contact Info) Description 10/05/2020 Scanned Document [address] [place] [address] [phone] Provider, Generic Social History Tobacco Use Types Packs/Day Years [...] Info) Description 07/07/2024 8:30 AM EDT Appointment [facility] Heart & Vascular [facility] - Electrophysiology [address] [place] [phone] Nettie Cunningham V., SOFTWOOD FALLER [address] [facility] [address] [place], [place] [phone] 04/06/2025 1:40 PM EST Appointment [facility] Heart & Vascular [facility] - Electrophysiology [address] [place] [phone] Nettie Cunningham V., SOFTWOOD FALLER [address] [facility] [address] [place], [place] [phone] documented as of this encounter Visit Diagnoses Not on filedocumented in this encounter Care Teams Circuit Breaker Assembler Relationship Specialty Start Date End Date System, Provider Not In PCP - General 04/23/19 04/09/22 Julio César Mcdonough MD [address] [place] [phone] PCP - General Internal Medicine 04/10/22 Drew Willett MD [address] [address] Cardiovascular Disease 01/06/19 3 Rhianna Tracey MD [address] [facility] [address] [place] [address] Resident Cardiology Hospitalist 02/12/19 3 Rhianna Tracey MD [address] [facility] [address] [place] [address] Primary Department Editor Cardiovascular Disease 04/10/22 documented as of this encounter
[2024-04-14 14:03] LABS: MANUAL DIFF FLAG NO
[2024-04-14 14:07] LABS: Basophils Absolute Auto 0.1 X10*3/uL (0.0-0.2); Basophils Percent Auto 0.6 % (0-2); Eosinophils Absolute Auto 0.2 X10*3/uL (0.0-0.4); Eosinophils Percent Auto 1.7 % (0-4); Hematocrit 42.5 % (42.0-52.0); Imm Gran Abs Auto 0.02 X10*3/uL (0.00-0.03); Imm Gran Pct Auto 0.2 % (0.0-0.4); Lymphocytes Absolute Auto 3.7 X10*3/uL (1.2-4.9); Lymphocytes Percent Auto 37.4 % (20-40); Mean Corpuscular HGB Conc 32.9 g/dl (31.0-36.0); Mean Corpuscular Volume 94.2 fL (80.0-98.0); Mean Platelet Volume 9.4 fL (9.4-12.4); Monocytes Absolute Auto 0.8 X10*3/uL (0.1-1.2); Monocytes Percent Auto 8.5 % (2-11); Neutrophils Percent Auto 51.6 % (45-73); Platelet Count 238 X10*3/uL (160-400); Red Blood Count 4.51 X10*6/uL (4.60-5.80); Red Cell Distribution Width 13.5 % (11.0-16.0); White Blood Count 9.8 X10*3/uL (4.8-10.8)
[2024-04-14 14:48] LABS: Alanine Aminotransferase 17 U/L (0-40); Alkaline Phosphatase 74 U/L (39-117); Anion Gap 9 (12-20); Aspartate Amino Transferase 29 U/L (5-37); Bilirubin Total 0.7 mg/dL (0.0-1.0); Blood Urea Nitrogen 14 mg/dL (9-16); Calcium 9.2 mg/dL (8.4-10.2); Carbon Dioxide 28 mmol/L (22-29); Chloride 106 mmol/L (96-108); Cholesterol 160 mg/dL (<200); Estimated Glomerular Filt Rate > 60; Glucose Random 95 mg/dL (60-115); HDL Cholesterol 47 mg/dL (>40); LDL Cholesterol Calculated 94 mg/dL (<100); Potassium 4.2 mmol/L (3.3-5.1); Sodium 139 mmol/L (135-145); Total Protein 7.1 g/dL (6.5-8.0); Triglycerides 97 mg/dL (<150)
[2024-04-14 15:13] LABS: TSH reflex Free T4 1.22 uIU/mL (0.32-4.0)
== END 2024-04-14 08:19 | disposition home or self-care (01) ==
LOC: HO.CHCLDS 08:18
PROVIDERS: Visit Provider Internal Medicine
DX: I10 Essential (primary) hypertension (principal); E03.9 Hypothyroidism, unspecified
CPT/HCPCS: 36415; 80053; 80061; 84443; 85025

== ENCOUNTER → 2024-05-07 23:59 | Outpatient (BNV) | payer MEDICARE, MEDICAID, SELFPAY ==
--- NOTE | 2024-05-18 12:35 | MHC.OFFVIS ---
Intake Visit Reasons: Remote HF monitoring- Medtronic Allergies No Known Allergies Allergy (Verified 09/25/22 10:49) PFSH Medical History (Updated 01/20/23 @ 17:50 by Brian Lentz MD) Hypothyroid Peripheral artery disease Elevated cholesterol Myocardial infarction CAD (coronary artery disease) HTN (hypertension) High cholesterol Surgical History (Updated 08/11/23 @ 12:52 by Brian Lentz MD) Hx of cardiac catheterization Hx of heart artery stent AICD (automatic cardioverter/defibrillator) present Hx of left inguinal hernia repair History of surgery Family History (Updated 09/25/22 @ 10:51 by NATY Garvin) Mother Ovarian cancer Father Heart attack Social History (Updated 09/25/22 @ 10:51 by NATY Garvin) Are you a primary day care home provider to a significant other at home: No Do you presently have visiting nurse or other home services: No Alcohol intake: never Patient Tobacco Use Status: Former Tobacco user Tobacco use type: Cigarette Years Smoked: 30 +/- Current occupational status: retired 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 V pacing less than 0.1%. Stable thoracic impedance. [id number] Cardiac Device Interrogation, cardio physiologic monitor Procedure code (CPT) selection complete Assessment & Plan Assessment & Plan (1) AICD (automatic cardioverter/defibrillator) present: Comment: 2019-S/P STEMI w/VT-VF arrest (Medtronic)-has never fired Code(s): Z95.810 - Presence of automatic (implantable) cardiac defibrillator Category: Surgical Plan Coding Level of Care Code Procedure Only Diagnoses AICD (automatic cardioverter/defibrillator) present Z95.810 CPT Codes Cardiac Device Check - Cardiac Device 15: [id number] Cardiac Device Interrogation, cardio physiologic monitor ([id number])
== END ==
PROVIDERS: PCP Internal Medicine; Visit Provider Internal Medicine Cardiovascular Disease
DX: Z45.09 Encounter for adjustment and management of other cardiac device (principal)
CPT/HCPCS: 93297

== ENCOUNTER → 2024-05-07 23:59 | Outpatient (BNV) | payer MEDICARE, MEDICAID, SELFPAY ==
--- NOTE | 2024-05-18 12:36 | MHC.OFFVIS ---
Intake Visit Reasons: Remote ICD check- Medtronic Allergies No Known Allergies Allergy (Verified 09/25/22 10:49) PFSH Medical History (Updated 01/20/23 @ 17:50 by Brian Lentz MD) Hypothyroid Peripheral artery disease Elevated cholesterol Myocardial infarction CAD (coronary artery disease) HTN (hypertension) High cholesterol Surgical History (Updated 08/11/23 @ 12:52 by Brian Lentz MD) Hx of cardiac catheterization Hx of heart artery stent AICD (automatic cardioverter/defibrillator) present Hx of left inguinal hernia repair History of surgery Family History (Updated 09/25/22 @ 10:51 by NATY Garvin) Mother Ovarian cancer Father Heart attack Social History (Updated 09/25/22 @ 10:51 by NATY Garvin) Are you a primary senior care provider to a significant other at home: No Do you presently have visiting nurse or other home services: No Alcohol intake: never Patient Tobacco Use Status: Former Tobacco user Tobacco use type: Cigarette Years Smoked: 30 +/- Current occupational status: retired 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 Battery life more than 5 years. No new alerts. V sensed 100%. V paced less than 0.1%. [id number] Cardiac Device Interrogation, pacemaker or defibrillator Procedure code (CPT) selection complete Assessment & Plan Assessment & Plan (1) AICD (automatic cardioverter/defibrillator) present: Comment: 2019-S/P STEMI w/VT-VF arrest (Medtronic)-has never fired Code(s): Z95.810 - Presence of automatic (implantable) cardiac defibrillator Category: Surgical Plan Coding Level of Care Code Procedure Only Diagnoses AICD (automatic cardioverter/defibrillator) present Z95.810 CPT Codes Cardiac Device Check - Cardiac Device 14: [id number]-[id number] Cardiac Device Interrogation, pacemaker or defibrillator ([id number])
== END ==
PROVIDERS: PCP Internal Medicine; Visit Provider Internal Medicine Cardiovascular Disease
DX: I21.4 Non-ST elevation (NSTEMI) myocardial infarction (principal); Z95.810 Presence of automatic (implantable) cardiac defibrillator
CPT/HCPCS: 93295

== ENCOUNTER 2024-07-19 09:31 | Outpatient (REF) | payer MEDICARE, MEDICAID, SELFPAY ==
--- NOTE | ~2024-07-19 | XR_ITS ---
EXAMINATION: XR KNEE 1-2 VIEWS RIGHT HISTORY: right knee pain COMPARISON: Comparison is made with the prior examination dated 07/14/2020. FINDINGS: AP and lateral views of the right knee are submitted. Osseous mineralization is normal. There is no fracture or dislocation. The joint spaces are preserved. There are vascular calcifications. There is no joint effusion. XR/XR knee RT 2V IMPRESSION: Unremarkable examination of the right knee. Electronically signed by: Jonah Rosenthal MD 07/19/2024 12:20 PM EDT
--- OUTSIDE RECORDS SUMMARY | 2024-07-19 10:07 | XMS_ITS | Encounter Summary ---
Author Organization [employer] Address [address] [place] [address] 7t [place] [address] Care Team Providers Care Sales Department Manager Name Role Phone Julio César Hummel MD Primary Care Prov ider Julio César Hummel MD Primary Care Prov ider Reason for Visit * Reason Comments Med Change Request Encounter Details Date Type Department Care Team ([facility] st Contact Info) Description 12/03/2022 Refill [facility] CHC MED & PEDS [address] [place], [place] [phone] Ashlie Vázquez MD [address] [place] [address] Actinic keratoses Social History Tobacco Use Types Packs/Day Years Used Date Smoking Tobacco: Unknown Depression Answer Date Recorded Patient Health Questionnaire-9 Score 0 08/06/2022 Housing Stability Answer Date Recorded What is your housing situation today? I have karlanguyen tinoco 11/28/[address] you [...] as of this encounter Plan of Treatment Not on file documented as of this encounter Visit Diagnoses Diagnosis Actinic keratoses Actinic keratosis documented in this encounter Additional Health Concerns Assessment Noted Time PHQ-9 Depression Total Score: 0 08/07/19 23 9:04 AM EDT documented as of this encounter Care Teams Sales Department Manager Relationship Specialty Start Date End Date Julio César Hummel MD [address] [place] [address] PCP - General Internal Medicine 02/26/19 06/18/23 Julio César Hummel MD [address] [place] [address] PCP - General Internal Medicine 07/02/23 documented as of this encounter
== END 2024-07-19 09:32 | disposition home or self-care (01) ==
LOC: HO.HMGCX 09:31
PROVIDERS: PCP Internal Medicine; Visit Provider Internal Medicine
DX: M25.561 Pain in right knee (principal)
CPT/HCPCS: 73560

== ENCOUNTER → 2024-07-19 09:41 | Outpatient (BNV) | payer MEDICARE, MEDICAID, SELFPAY | PROVIDERS: PCP Internal Medicine; Visit Provider Radiology Diagnostic Radiology | DX: M25.561 Pain in right knee (principal) | CPT/HCPCS: 73560 ==

== ENCOUNTER → 2024-11-05 23:59 | Outpatient (BNV) | payer MEDICARE, MEDICAID, SELFPAY ==
--- NOTE | 2024-12-06 20:49 | MHC.OFFVIS ---
Intake Visit Reasons: Remote ICD check- [employer] Allergies No Known Allergies Allergy (Verified 09/25/22 10:49) PFSH Medical History (Updated 01/20/23 @ 17:50 by Brian Lentz MD) Hypothyroid Peripheral artery disease Elevated cholesterol Myocardial infarction CAD (coronary artery disease) HTN (hypertension) High cholesterol Surgical History (Updated 08/11/23 @ 12:52 by Brian Lentz MD) Hx of cardiac catheterization Hx of heart artery stent AICD (automatic cardioverter/defibrillator) present Hx of left inguinal hernia repair History of surgery Family History (Updated 09/25/22 @ 10:51 by NATY Garvin) Mother Ovarian cancer Father Heart attack Social History (Updated 09/25/22 @ 10:51 by NATY Garvin) Are you a primary care management assistant to a significant other at home: No Do you presently have visiting nurse or other home services: No Alcohol intake: never Patient Tobacco Use Status: Former Tobacco user Tobacco use type: Cigarette Years Smoked: 30 +/- Current occupational status: retired 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 [id number] Cardiac Device Interrogation, pacemaker or defibrillator Procedure code (CPT) selection complete Assessment & Plan Assessment & Plan (1) AICD (automatic cardioverter/defibrillator) present: Comment: 2019-S/P STEMI w/VT-VF arrest ([employer])-has never fired Code(s): Z95.810 - Presence of automatic (implantable) cardiac defibrillator Category: Surgical Plan Coding Level of Care Code Procedure Only Diagnoses AICD (automatic cardioverter/defibrillator) present Z95.810 CPT Codes Cardiac Device Check - Cardiac Device 14: [id number] Cardiac Device Interrogation, pacemaker or defibrillator ([id number])
== END ==
PROVIDERS: PCP Internal Medicine; Visit Provider Internal Medicine Cardiovascular Disease
DX: Z45.02 Encounter for adjustment and management of automatic implantable cardiac defibrillator (principal)
CPT/HCPCS: 93295

== ENCOUNTER → 2024-11-05 23:59 | Outpatient (BNV) | payer MEDICARE, MEDICAID, SELFPAY ==
--- NOTE | 2024-12-06 20:47 | MHC.OFFVIS ---
Intake Visit Reasons: Remote HF monitoring- [employer] Allergies No Known Allergies Allergy (Verified 09/25/22 10:49) PFSH Medical History (Updated 01/20/23 @ 17:50 by Brian Lentz MD) Hypothyroid Peripheral artery disease Elevated cholesterol Myocardial infarction CAD (coronary artery disease) HTN (hypertension) High cholesterol Surgical History (Updated 08/11/23 @ 12:52 by Brian Lentz MD) Hx of cardiac catheterization Hx of heart artery stent AICD (automatic cardioverter/defibrillator) present Hx of left inguinal hernia repair History of surgery Family History (Updated 09/25/22 @ 10:51 by NATY Garvin) Mother Ovarian cancer Father Heart attack Social History (Updated 09/25/22 @ 10:51 by NATY Garvin) Are you a primary infant childcare provider to a significant other at home: No Do you presently have visiting nurse or other home services: No Alcohol intake: never Patient Tobacco Use Status: Former Tobacco user Tobacco use type: Cigarette Years Smoked: 30 +/- Current occupational status: retired 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 [id number] Cardiac Device Interrogation, cardio physiologic monitor Procedure code (CPT) selection complete Assessment & Plan Assessment & Plan (1) AICD (automatic cardioverter/defibrillator) present: Comment: 2019-S/P STEMI w/VT-VF arrest ([employer])-has never fired Code(s): Z95.810 - Presence of automatic (implantable) cardiac defibrillator Category: Surgical Plan: Coding Level of Care Code Procedure Only Diagnoses AICD (automatic cardioverter/defibrillator) present Z95.810 CPT Codes Cardiac Device Check - Cardiac Device 15: [id number] Cardiac Device Interrogation, cardio physiologic monitor ([id number])
== END ==
PROVIDERS: PCP Internal Medicine; Visit Provider Internal Medicine Cardiovascular Disease
DX: Z45.02 Encounter for adjustment and management of automatic implantable cardiac defibrillator (principal)
CPT/HCPCS: 93297

== ENCOUNTER 2024-11-24 07:15 | Outpatient (AMB) | payer MEDICARE, MEDICAID, SELFPAY ==
--- OUTSIDE RECORDS SUMMARY | 2024-11-24 07:17 | XMS_ITS | Clinical Summary ---
Author Organization [facility] Address [address] [place] [address] Care Team Providers Care Dope Sprayer Name Role Phone Rhianna Tracey MD Unavailable [phone] Julio César Mcdonough MD Primary Care Prov ider Allergies No known active allergies Medications aspirin 81 MG chewable tabletIndications:S CONNOR (ST elevation myocardial infarction) (HCC) Chew 1 tablet (81 mg total) daily. 90 tablet 3 0 Active carvedilol (COREG) 3.125 MG tabletIndications:S CONNOR (ST elevation myocardial infarction) (HCC) Take 1 tablet (3.125 mg total) by mouth 2 (two) times a day with meals. 180 tablet 3 0 Active clopidogrel (PLAVIX) 75 MG tabletIndications:S CONNOR (ST elevation myocardial infarction) (HCC) Take 1 tablet (75 mg total) by mouth daily. 90 tablet 3 0 Active losartan (COZAAR) 25 MG tabletIndications:S CONNOR (ST elevation myocardial infarction) (HCC) Take 1 tablet (25 mg total) by mouth nightly. 90 tablet 3 0 Active thiamine (VITAMIN B-1) 100 MG tabletIndications:S CONNOR (ST elevation myocardial infarction) (HCC) Take 1 tablet (100 mg total) by mouth daily. 90 tablet 3 0 Active rosuvastatin (CRESTOR) 40 MG tabletIndications:C oronary artery disease involving [place] coronary artery of [place] heart without angina pectoris Take 1 tablet (40 mg total) by mouth daily. 90 tablet 3 1 Active evolocumab (REPATHA) 140 MG/ML injectionIndication s:Mixed hyperlipidemia,Hist ory of ST elevation myocardial infarction (STEMI),Coronary artery disease involving [place] coronary artery of [place] heart without angina pectoris Inject 1 mL (140 mg total) under the skin every 14 days (2 weeks). 2.1 mL 5 1 Active ezetimibe (ZeTIA) 10 MG tabletIndications:M ixed hyperlipidemia Take 1 tablet (10 mg total) by mouth daily. 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 08/24/2019 Coronary artery disease invo lving [place] coronary artery of [place] heart without angina pectoris 07/22/2019 ICD (implantable [...] (01/15/2019): Added automatically from request for surgery [id number] Resolved Problems Problem Noted Date Diagnosed Date Resolved Date ST elevation myocardial infa rction involving left circumflex coronary artery 01/05/2019 02/11/19 20 Immunizations Immunization Administration Dates Next Due Influenza Inactivated/Split Preservative [...] Assigned at Male 10/07/2023 4:16 PM EDT Legal Sex Male 4:04 PM EST Gender Identity Male 10/07/2023 4:16 PM EDT Sexual Orientation Choose not to disclose 2023 4:16 PM EDT Last Filed Vital Signs Vital Sign Reading Time Taken Comments Blood Pressure 105/63 05/25/2020 1:25 PM EDT Pulse 71 05/25/2020 1:25 PM EDT Temperature 36.1 C (96.9 F) 05/25/2020 1:25 PM EDT Respiratory Rate 20 01/16/2019 7:00 AM EST Oxygen Saturation 100% 05/25/2020 1:25 PM EDT Inhaled Oxygen Concentration - - Weight 73 kg (161 lb) 05/25/2020 1:25 PM EDT Height 172.7 cm (5' 8 ) 05/25/2020 1:25 PM EDT Body Mass Index 24.48 05/25/2020 1:25 PM EDT Plan of Treatment Upcoming Encounters Date Type Department Care Team (Late st Contact Info) Description 04/06/2025 1:40 PM EST Appointment [facility] Heart & Vascular [place] [address] [address] Nettie Cunningham V., MANUFACTURING MANAGEMENT ASSOCIATE 65 [facility] [address] [place], [place] [phone] Health Maintenance Due Date Last Done Comments Hepatitis C Virus Screening 1955 DTaP/Tdap/Td Vaccines (1 - Tdap) 07/08/1974 Pneumococcal Vaccines 50+ (1 of 2 - PCV) 07/08/1974 Colonoscopy 07/08/2000 Zoster (Shingles) Vaccine (1 of 2) 07/08/2005 RSV Vaccine 50 years and older and Patients (1 - Risk 60-74 years 1-dose series) 2015 Influenza Vaccine 09/10/2024 COVID-19 Vaccine ( season) 2024 01/29/2021, 06/30/2020, 06/01/2020 Abdominal Aortic Aneurysm (AAA) Screening Discontinued 01/06/2019 Advance Care Planning Completed 01/22/2019 Hepatitis B Vaccines Aged Out No long er eligible based on patient's age to complete this topic Medical Devices Implanted Type Area Poacher Wringer Operator Device Identifier Shelf Expiration Date Model / Serial / Lot [id number] Defibrillator Cardiac Visia Af Mri Df4 Vr - [id number] Implanted:Qty: 1 on 01/15/2019 by Dallin Colbert MD at [facility] ICD [employer]TR[employer] MINIMALLY INVASIVE T 02/24/2020 [id number] / [id number] / [id number] Lead Icd 62cm 8.6fr Sq Std Hlx Isoglide Strd Elute Jolene Etfe - [id number] Implanted:Qty: 1 on 01/15/2019 by Dallin Colbert MD at [facility] Lead [employer] MINIMALLY INVASIVE T 11/09/2020 [id number] / [id number] / [id number] System Coronary Stent 20mm 3.5mm Sng Mnrl Everolimus Pltn Cr - [id number] Implanted:Qty: 1 on 01/05/2019 by Isrrael Hernandez MD at [facility] Stent NeXeption SCIENTIFIC DALIA [id number] 06/15/2020 [id number] / [id number] Procedures Procedure Name Priority Date/Time Associated Diagnosis Comments CT CHEST/ABDOMEN+PELVI S W/O CONTRAST STAT 01/06/2019 2:54 AM EST from Last 3 Months or Most Recently Relevant to Health Maintenance Results * CT Chest/abdomen+pelvis w/o contrast (01/06/2019 2:54 [...] report as now presented. Mariposa Stiles APRN [facility] [place] ORDERABLES Final Res ult from Last 3 Months or Most Recently Relevant to Health Maintenance Insurance MEDICARE PART A & B [facility] Advance Directives Documents on File Type Date Recorded Patient Reading Intervention Teacher Expl anation Advance Directive-Scan 01/22/2019 10:08 AM LIVING WILL * Full Code (Latest Code Status on File) Date Activated Date Inactivated Comments 01/15/2019 1:05 PM * Full Code Date Activated Date Inactivated Comments 01/06/2019 4:49 AM 01/15/2019 1:05 PM Question Answer Comments Decision Thoroughly Discussed with: Surrogate Name of Legally Authorized Reading Intervention Teacher: Augusta Chao * Full Code Date Activated Date Inactivated Comments 01/05/2019 9:10 PM 01/06/2019 4:49 AM * Full Code Date Activated Date Inactivated Comments 01/05/2019 8:55 PM 01/05/2019 9:10 PM Question Answer Comments Decision Thoroughly Discussed with: PatientSurro gate Name of Legally Authorized Reading Intervention Teacher: Son-i n-law Care Teams Dope Sprayer Relationship Specialty Start Date End Date Julio César Mcdonough MD [address] [place] [phone] PCP - General Internal Medicine 04/10/22 Rhianna Tracey MD Primary Semiconductor Processing Group Leader Cardiovascular Disease 04/10/22
--- OUTSIDE RECORDS SUMMARY | 2024-11-24 07:17 | XMS_ITS | Encounter Summary ---
Author Organization [employer] Address [address] [place] [address] 7t [place] [address] Care Team Providers Care Logistics Planner Name Role Phone Julio César Hummel MD Primary Care Prov ider Julio César Hummel MD Primary Care Prov ider Reason for Visit * Reason Comments Med Change Request Encounter Details Date Type Department Care Team ([facility] st Contact Info) Description 12/03/2022 Refill [facility] CHC MED & PEDS [address] [place], [place] [phone] Ashlie Vázquez MD [address] [place] [address] Actinic keratoses Social History Tobacco Use Types [...] documented as of this encounter Care Teams Logistics Planner Relationship Specialty Start Date End Date Julio César Hummel MD [address] [place] [address] PCP - General Internal Medicine 02/26/19 06/18/23 Julio César Hummel MD [address] [place] [address] PCP - General Internal Medicine 07/02/23 documented as of this encounter
--- OUTSIDE RECORDS SUMMARY | 2024-11-24 07:17 | XMS_ITS | Encounter Summary ---
Author Organization [email or web address] Address 75 [facility] 7t [place] [address] Care Team Providers Care Airport Manager Name Role Phone Julio César Hummel MD Primary Care Prov ider Reason for Visit * Reason Comments Med Refill Encounter Details Date Type Department Care Team (Late st Contact Info) Description 02/11/2024 Refill [facility] CHC MED & PEDS [address] [place], [place] [phone] Julio César Hummel MD [address] [place] [address] Primary hypertension; Coronary artery disease involving [place] coronary artery of [place] heart without angina pectoris Social History Tobacco [...] Unspecified essential hypertension Coronary artery disease involving [place] coronary artery of [place] heart without angina pectoris documented in this encounter Additional Health Concerns Assessment Noted Time PHQ-9 Depression Total Score: 0 08/07/19 23 9:04 AM EDT documented as of this encounter Care Teams Airport Manager Relationship Specialty Start Date End Date Julio César Hummel MD [address] [place] [address] PCP - General Internal Medicine 07/02/23 documented as of this encounter
--- OUTSIDE RECORDS SUMMARY | 2024-11-24 07:17 | XMS_ITS | Encounter Summary ---
Author Organization [facility] Address [address] [place] [address] Care Team Providers Care Arboriculturist Name Role Phone Drew Willett MD Unavailable [phone] Rhianna Tracey MD Unavailable [phone] System, Provider Not In Primary Care Provider Un available Rhianna Tarcey MD Unavailable [phone] Julio César Mcdonough MD Primary Care Prov ider Encounter Details Date Type Department Care Team (Late st Contact Info) Description 03/06/2021 Telephone [facility] [place] [facility] Vascular & Endovascular Surgery [address] [place] [address] Marco A Yang MD [address] [place] [address] Social History Tobacco Use Types Packs/Day Years [...] Info) Description 04/06/2025 1:40 PM EST Appointment [facility] Heart & Vascular [place] - Electrophysiology [address] [facility] [address] [place] [address] Nettie Cunningham V., REAL ESTATE RENTAL AGENT 65 [facility] Abhishek [address] [place] [address] documented as of this encounter Visit Diagnoses Not on filedocumented in this encounter Care Teams Arboriculturist Relationship Specialty Start Date End Date System, Provider Not In PCP - General 04/23/19 04/09/22 Julio César Mcdonough MD [address] [place] [phone] PCP - General Internal Medicine 04/10/22 Drew Willett MD [address] [address] Cardiovascular Disease 01/06/19 3 Rhianna Tracey MD [address] [address] Resident Cardiology Hospitalist 02/12/19 3 Rhianna Tracey MD 1260 [facility] [address] [place] [address] Primary Social Media Manager Cardiovascular Disease 04/10/22 documented as of this encounter
--- OUTSIDE RECORDS SUMMARY | 2024-11-24 07:17 | XMS_ITS | Clinical Summary ---
Author Organization [facility] [address] [facility] Address [address] [place] [phone] Phone Care Team Providers Care Leather Seasoner Name Role Phone Agnie Hi MD Primary Care Provider Medications atorvastatin [...] time each day. 90 tablet 5 Active Active Problems Problem Noted Date Diagnosed [...] months Implantable cardioverter-defibrillator (ICD) in situ 07/22/2019 Surgical History Surgery Date Site/Laterality Comments HERNIA REPAIR PROCEDURE: ID REPAIR FIRST ABDOMINAL WALL HERNIA Family History [...] 08/27/2023 9:08 AM EDT Plan of Treatment Health Maintenance Due Date Last Done Comments Colorectal Cancer Screening: Colonoscopy 1955 DTaP,Tdap,and Td Vaccines (1 - Tdap) 07/08/1974 Pneumococcal Vaccine: 50+ Years (1 of 1 - PCV) 07/08/2005 Zoster Vaccines (1 of 2) 07/08/2005 Abdominal Aortic Aneurysm (AAA) Screen 01/13/2022 Falls Risk Assessment 01/13/2022 Hepatitis C Screening 01/13/2022 Medicare Annual Wellness Visit 01/13/2022 Social Influencers of Health Screening 01/13/2022 Depression Screening 02/11/2024 Hypertension/CHF/CAD Annual BMP Blood Test 08/14/2024 08/15/2023 COVID-19 Vaccine (2024-2 6 season) 2024 01/29/2021, 06/30/2020, 06/01/2020 Influenza Vaccine (#1) 2024 Cholesterol Screening (Lipid Panel) 08/14/2028 08/15/2023, 02/05/2023 RSV Immunization Adult Patients (1 - 1-dose 75+ series) 07/08/2030 HIB [...] age to complete this topic Meningococcal B Vaccine Aged Out No l onger eligible based on patient's age to complete this topic RSV Immunization Patients Under 20 months Aged Out No longer eligible b ased on patient's age to complete this topic Varicella Vaccines Aged Out No longer eligible based on patient's age to complete this topic Insurance [place]ICARE [place]ICAID [place] Care Teams Leather Seasoner Relationship Specialty Start Date End Date Angie Hi MD [address] [place] [address] PCP - General 04/21/23
--- OUTSIDE RECORDS SUMMARY | 2024-11-24 07:17 | XMS_ITS | Encounter Summary ---
Author Organization [employer] Address [address] [place] [address] 7t [place] [address] Care Team Providers Care Server Developer Name Role Phone Julio César Hummel MD Primary Care Prov ider Julio César Hummel MD Primary Care Prov ider Reason for Visit * Reason Onset Date Comments Medication Question 05/30/2022 Encounter Details Date Type Department Care Team ([facility] Contact Info) Description 05/30/2022 Telephone [place] [facility] [address] [place], [place] [phone] Julio César Hummel MD 505 [place], [place] [phone] Medication Question Social History Tobacco Use Types [...] follows for Cardiology. RN advised that per [facility] system, pt followed by Paola Simmons in [place], [place]. Provided contact number [phone] and [phone]. She verbalizes understanding and states she will contact the office to inquire if pt is cleared for the procedure. * Telephone Encounter - Jaxonabdelrahmannelaruben Frankie Albright - 05/30/2022 10:31 AM EDT Tc from [facility]y with [facility] giving a call in regards to a mutaul pt having a surgeryschedule next Friday and requesting to stop Clopidofrel (plavix) 75 mg tablet and is requesting anapproval from provider regarding medication and some notes regarding pt Travel Specialist. Please contact Edy at [phone] documented in this encounter Plan of Treatment Not on file documented as of this encounter Visit Diagnoses Not on filedocumented in this encounter Care Teams Server Developer Relationship Specialty Start Date End Date Julio César Hummel MD 505 [place] [address] PCP - General Internal Medicine 02/26/19 06/18/23 Julio César Hummel MD 505 [place] [address] PCP - General Internal Medicine 07/02/23 documented as of this encounter
--- OUTSIDE RECORDS SUMMARY | 2024-11-24 07:17 | XMS_ITS | Encounter Summary ---
Author Organization [employer] Address 75 [facility] 7t [place] [address] Care Team Providers Care Field Research Associate Name Role Phone Julio César Hummel MD Primary Care Prov ider Reason for Visit * Reason Comments Med Refill Encounter Details Date Type Department Care Team (Late st Contact Info) Description 02/15/2024 Refill [facility] 505 [place], [place] [phone] Julio César Hmumel MD 505 [place] [address] Primary hypertension; Coronary artery disease involving [place] coronary artery of [place] heart without angina pectoris Social History Tobacco [...] Unspecified essential hypertension Coronary artery disease involving [place] coronary artery of [place] heart without angina pectoris documented in this encounter Additional Health Concerns Assessment Noted Time PHQ-9 Depression Total Score: 0 08/07/19 23 9:04 AM EDT documented as of this encounter Care Teams Field Research Associate Relationship Specialty Start Date End Date Julio César Hummel MD [address] [place] [address] PCP - General Internal Medicine 07/02/23 documented as of this encounter
--- OUTSIDE RECORDS SUMMARY | 2024-11-24 07:17 | XMS_ITS | Encounter Summary ---
Author Organization [facility] Address [address] [place] [address] Care Team Providers Care Play Reader Name Role Phone Drew Willett MD Unavailable [phone] Rhianna Tracey MD Unavailable + [phone] System, Provider Not In Primary Care Provider Un available Rhianna Tracey MD Unavailable + [phone] Julio César Mcdonough MD Primary Care Prov ider Encounter Details Date Type Department Care Team (Late st Contact Info) Description 10/05/2020 Scanned Document [address] [place] [address] [phone] Provider, Generic Social History Tobacco Use Types [...] Info) Description 04/06/2025 1:40 PM EST Appointment [facility] Heart & Vascular [place] - Electrophysiology 85 [facility] [address] [place] [address] Nettie Cunningham V., HAT MAKER 65 [facility] 405 [place], [place] [phone] documented as of this encounter Visit Diagnoses Not on filedocumented in this encounter Care Teams Play Reader Relationship Specialty Start Date End Date System, Provider Not In PCP - General 04/23/19 04/09/22 Julio César Mcdonough MD 505 [place] [address] PCP - General Internal Medicine 04/10/22 Drew Willett MD 1260 [facility] [address] [place] [address] Cardiovascular Disease 01/06/19 3 Rhianna Tracey MD 1260 [facility] [address] [place] [address] Resident Cardiology Hospitalist 02/12/19 3 Rhianna Tracey MD 1260 [facility] [address] [place] [address] Primary Gravity Prospecting Observer Cardiovascular Disease 04/10/22 documented as of this encounter
--- OUTSIDE RECORDS SUMMARY | 2024-11-24 07:17 | XMS_ITS | Encounter Summary ---
Author Organization [facility] Address [address] [place] [address] Care Team Providers Care Sap Bi Developer Name Role Phone Drew Willett MD Unavailable [phone] Rhianna Tracey MD Unavailable [phone]- [phone] System, Provider Not In Primary Care Provider Un available Rhianna Tracey MD Unavailable [phone]- [phone] Julio César Mcdonough MD Primary Care Prov ider Encounter Details Date Type Department Care Team (Late st Contact Info) Description 03/05/2021 Telephone [facility] Vascular & Endovascular Surgery [address] [place] [address] Marco A Yang MD [address] [place] [address] Social History Tobacco Use Types Packs/Day Years [...] Info) Description 04/06/2025 1:40 PM EST Appointment [facility] Heart & Vascular [place] - Electrophysiology 85 [facility] [address] [place] [address] Nettie Cunningham V., GIN POLE OPERATOR 65 [facility] Abhis[facility]k [address] [place] [address] documented as of this encounter Visit Diagnoses Not on filedocumented in this encounter Care Teams Sap Bi Developer Relationship Specialty Start Date End Date System, Provider Not In PCP - General 04/23/19 04/09/22 Julio César Mcdonough MD [address] [place] [phone] PCP - General Internal Medicine 04/10/22 Drew Willett MD [address] [address] Cardiovascular Disease 01/06/19 3 Rhianna Tracey MD [address] [address] Resident Cardiology Hospitalist 02/12/19 3 Rhianna Tracey MD 1260 [facility] 109 [place] [address] Primary Digital Media Sales Consultant Cardiovascular Disease 04/10/22 documented as of this encounter
--- OUTSIDE RECORDS SUMMARY | 2024-11-24 07:17 | XMS_ITS | Encounter Summary ---
Author Organization [employer] Address 75 [facility] 7 [place] [address] Care Team Providers Care Ticket Sales Agent Name Role Phone Julio César Hummel MD Primary Care Prov ider Reason for Visit * Reason Comments Med Refill Encounter Details Date Type Department Care Team (Late st Contact Info) Description 10/03/2024 Refill [facility] MED [facility] PEDS 505 [place], [place] [phone] Julio César Hummel MD 505 [place] [address] Social History Tobacco Use Types Packs/Day Years Used Date Smoking Tobacco: Unknown Depression Answer Date Recorded Patient Health Questionnaire-9 Score 0 04/09/2024 Patient Health Questionnaire-9 Score 0 04/09/2024 Last PHQ-9: Questionnaire Data Not on file 0 04/09/2024 Housing Stability Answer Date Recorded What is your housing situation today? I have karlanguyen tinoco 04/09/[address] you [...] documented as of this encounter Care Teams Ticket Sales Agent Relationship Specialty Start Date End Date Julio César Hummel MD [address] [place] [address] PCP - General Internal Medicine 07/02/23 documented as of this encounter
--- OUTSIDE RECORDS SUMMARY | 2024-11-24 07:17 | XMS_ITS | Encounter Summary ---
Author Organization [facility] Address [address] [place] [address] Care Team Providers Care Service Unit Operator Name Role Phone Drew Willett MD Unavailable [phone] Rhianna Tracey MD Unavailable [phone]- [phone] System, Provider Not In Primary Care Provider Un available Rhianna Tracey MD Unavailable [phone]- [phone] Julio César Mcdonough MD Primary Care Prov ider Encounter Details Date Type Department Care Team (Late st Contact Info) Description 03/02/2021 Telephone [facility] Vascular & Endovascular Surgery [address] [place] [address] Marco A Yang MD [address] [place] [address] Social History Tobacco Use Types Packs/Day Years [...] Info) Description 04/06/2025 1:40 PM EST Appointment [facility] Heart & Vascular [place] - Electrophysiology 85 [facility] [address] [place] [address] Nettie Cunningham V., PIANO PROFESSOR 65 [facility] Abhishek [address] [place] [address] documented as of this encounter Visit Diagnoses Not on filedocumented in this encounter Care Teams Service Unit Operator Relationship Specialty Start Date End Date System, Provider Not In PCP - General 04/23/19 04/09/22 Julio César Mcdonough MD [address] [place] [phone] PCP - General Internal Medicine 04/10/22 Drew Willett MD [address] [address] Cardiovascular Disease 01/06/19 3 Rhianna Tracey MD [address] [address] Resident Cardiology Hospitalist 02/12/19 3 Rhianna Tracey MD 1260 [facility] 109 [place] [address] Primary Cerner Analyst Cardiovascular Disease 04/10/22 documented as of this encounter
--- OUTSIDE RECORDS SUMMARY | 2024-11-24 07:18 | XMS_ITS | Clinical Summary ---
Author Organization [employer] Address 75 [facility] 7t [place] [address] Care Team Providers Care Adjustment Examiner Name Role Phone Julio César Hummel MD Primary Care Prov ider Allergies No known active allergies Medications Diclofenac Sodium (Voltaren) 1 % gel Apply topically every 8 (eight) hours. 1 Active folic acid (Folvite) 1 MG tablet Take 1 tablet by mouth 1 (one) time each day. 0 Active ketotifen (Zaditor) 0.025 % ophthalmic solution Administer 1 drop into affected eye(s) every 12 (twelve) hours. 1 Active nicotine (Nicoderm, Step 2) 14 MG/24HR patch Place 1 patch on the skin 1 (one) time each day. 1 Active thiamine (Vitamin B-1) 100 MG tablet Take 1 tablet by mouth 1 (one) time each day. 2 Active Blood Pressure Monitoring (Blood Press Monitor/M-L Cuff) miscIndications:P rimary hypertension 1 kit in the morning. 1 each 3 Active sildenafil (Viagra) 50 MG tabletIndications :Erectile dysfunction due to arterial insufficiency TAKE 1 TABLET 1 HOUR BEFORE SEXUAL RELATIONS ONCE DAILY NEEDED. 20 tablet 3 3 Active Diclofenac Sodium 1 % gelIndications:Ac tinic keratoses To use once a day to the affected areas x 8 weeks. 300 g 2 5 Active ezetimibe (Zetia) 10 MG tablet Take 1 tablet (10 mg) by mouth Once per day. 90 tablet 3 5 04/09/19 26 Active capsicum (Zostrix) 0.075 % topical cream Apply topically every 8 (eight) hours. 56 g 3 5 Active fluorouracil (Efudex) 5 % solution Apply topically every 12 (twelve) hours. 10 mL 3 5 Active fluorouracil (Efudex) 5 % cream APPLY TOPICALLY IN THE MORNING. TO USE AT BEDTIME X 8 WEEKS 80 g 2 5 Active Diclofenac Sodium (Voltaren Arthritis Pain) 1 % gel Apply 1 g topically 2 times daily. 350 g 1 5 Active losartan (Cozaar) 25 MG tabletIndications :Primary hypertension,Stephania nary artery disease involving [place] coronary artery of [place] heart without angina pectoris TAKE 1 TABLET BY MOUTH EVERY DAY IN THE MORNING 90 tablet 1 5 Active atorvastatin (Lipitor) 80 MG tabletIndications :Primary hypertension,Stephania nary artery disease involving [place] coronary artery of [place] heart without angina pectoris TAKE 1 TABLET (80 MG) BY MOUTH IN THE MORNING 90 tablet 1 5 01/31/20 25 Active levothyroxine (Synthroid, Levoxyl) 125 MCG tablet TAKE 1 TABLET BY MOUTH EVERY DAY BEFORE BREAKFAST 90 tablet 3 5 Active pantoprazole (ProtoNix) 40 MG EC tabletIndications :Primary hypertension,Stephania nary artery disease involving [place] coronary artery of [place] heart without angina pectoris TAKE 1 TABLET BY MOUTH EVERY DAY BEFORE BREAKFAST 90 tablet 3 5 Active carvedilol (Coreg) 3.125 MG tabletIndications :Primary hypertension,Stephania nary artery disease involving [place] coronary artery of [place] heart without angina pectoris TAKE 1 TABLET BY MOUTH EVERY 12 HOURS 180 tablet 1 5 Active aspirin (Aspirin Low Dose) 81 MG EC tabletIndications :Primary hypertension,Stephania nary artery disease involving [place] coronary artery of [place] heart without angina pectoris Take 1 tablet (81 mg) by mouth Once per day. TAKE 1 TABLET (81 MG) BY MOUTH IN THE MORNING 90 tablet 1 5 Active clopidogrel (Plavix) 75 MG tabletIndications :Implantable cardioverter-defi brillator (ICD) in situ Take 1 tablet (75 mg) by mouth Once per day. 90 tablet 3 5 10/16/19 26 Active Active Problems Problem Noted Date Diagnosed Date Cardiogenic shock (CMS/HCC) 07/19/2024 Ventricular tachycardia (CMS/HCC) 07/19/2024 Assessment & Plan (07/19/2024 9:16 AM EDT): Following cardiology, he is s/p ICD no events felt, will follow up reccomendations Pain of right hand 07/19/2024 Assessment & Plan (07/19/2024 9:17 AM EDT): Will refer to hand surgery for evaluation S/P primary angioplasty with coronary stent 04/2023 [...] screening Primary hypertension 01/30/2022 Assessment & Plan (07/19/2024 9:16 AM EDT): Controlled, continue current therapy, encouraged low sodium diet and exercise as tolerated, follow up in 4 months Assessment & Plan (04/09/2024 10:12 AM EST): [...] machine, told to pick it up at [facility] pharmacy, keep a bp log, target <140/90, new labs order will be place, will follow up in 1 month Assessment & Plan (02/19/2022 5:39 PM EST): Controlled, no episode of chest pain/shortness of breath, no changes will be made Coronary artery disease invo lving [place] coronary artery of [place] heart without angina pectoris 01/30/2022 Assessment & Plan (04/09/2024 10:12 AM EST): Denied chest pain, shortness of breath, follow up cardiology Assessment & Plan (04/02/2022 1:38 PM EST): Refers has appointment at [facility] next week april 10, will follow up reccomendations Assessment & Plan (03/10/2022 4:39 PM EST): Told to follow up with section gang worker, no new episode of chest pain or shortness of breath Assessment & Plan (02/19/2022 5:40 PM EST): Patient has not seen a section gang worker in over 1 year, told to reschedule appointment Implantable cardioverter-defibrillator (ICD) in situ 07/22/2019 Assessment & Plan (04/09/2024 10:14 AM EST): Had icd interrogation, refers has 6yrs of life, no shock given History of ST elevation myocardial infarction (S [place]) 01/05/2019 Encounters Date Type Department Care Team Description 11/16/2024 10:15 AM EDT Office Visit [facility]ED[facility] [address] [place] [address] Ashlie Vázquez MD Actinic keratoses (Primary Dx); Post inflammatory hypopigmentation 11/16/2024 Travel 10/15/2024 Telephone [facility] MED & PEDS [address] [place] [address] Ashlie Vázquez MD Med Refill 10/03/2024 Refill [facility] MED & PEDS [address] [place] [address] Julio César Hummel MD 09/16/2024 Refill [facility] PEDS [address] [place] [address] Julio César Hummel MD Primary hypertension; Coronary artery disease involving [place] coronary artery of [place] heart without angina pectoris 09/16/2024 Refill [facility] PEDS [address] [place] [address] Shaniqua Beauchamp MD Primary hypertension; Coronary artery disease involving [place] coronary artery of [place] heart without angina pectoris from Last 3 Months Immunizations Immunization Administration Dates Next Due Moderna Covid-19 Vaccine 12+ 01/29/2021,07/01/19 21,06/01/2020 Social History Tobacco Use Types [...] Sign Reading Time Taken Comments Blood Pressure 130/78 11/16/2024 10:22 AM EDT Pulse 60 11/16/2024 10:22 AM EDT Temperature 36.3 C (97.3 F) 07/19/2024 8:50 AM EDT Respiratory Rate 20 11/16/2024 10:22 AM EDT Oxygen Saturation 97% 11/16/2024 10:22 AM EDT Inhaled Oxygen Concentration - - Weight 69.9 kg (154 lb) 11/16/2024 10:22 AM EDT Height 163.8 cm (5' 4.5 ) 11/16/2024 10:22 AM ED T Body Mass Index 26.03 11/16/2024 10:22 AM EDT Plan of Treatment Health Maintenance [...] 1-dose series) 2015 COVID-19 Vaccine ( season) 2024 01/29/2021, 06/30/2020, 06/01/2020 Influenza Vaccine (#1) 2024 Alcohol/Substance Use Screening 04/09/2025 04/09/2024 Depression Screening 04/09/2025 04/09/2024, 04/09/19 SDOH Screening 04/09/2025 04/09/2024 Tobacco Screening 11/16/2025 11/16/2024 Lipid Panel 04/14/2029 04/14/2024, 01/11, 08/23/2022, Additional history exists HIB Vaccines Aged Out [...] Associated Diagnosis Comments LIPID PANEL, STANDARD Routine 04/14/2024 8:20 AM EST Primary hypertension from Last 3 Months or Most Recently Relevant to Health Maintenance Results * Lipid Panel, Standard (04/14/2024 8:20 AM EST) Triglycerides 97 <150 mg/dL [facility] Comment:Desirable Triglyceri de: less than 150 mg/dLBorderline High Triglyceride 150-199 mg/dLHigh Triglyceride: 200-499 mg/dLVery High Triglyceride: greater than or equal to 5OO mg/dL Cholesterol 160 <200 mg/dL [facility] Comment:Desirable Cholestero l: less than 200 mg/dLBorderline High Cholesterol: 200-239 mg/dLHigh Cholesterol: greater than 239 mg/dL LDL Cholesterol Calculated 94 <100 mg/dL [facility] Comment:Desirable LDL: less than 100 mg/dLNear Optimal/Above Optimal LDL: 110- 129 mg/dLBorderline High LDL: 130-159 mg/dLHigh LDL: 160-189 mg/dLVery High LDL: greater than or equal to 190 mg/dL HDL Cholesterol 47 >40 mg/dL [facility] Comment:Desirable HDL: great er than 40 mg/dL Note: This HDL assay may give artificially low results in patients with liver disease. Blood Venous blood specimen / Unknown 04/14/2024 8:20 AM EST 04/14/2024 2:04 PM EST Julio César Mcdonough MD LAB BLOOD ORDERABL ES Final Result [facility] [address] [place] [address] [phone] from Last 3 Months or Most Recently Relevant to Health Maintenance Insurance MEDICARE [facility] MEDICARE Care Teams Adjustment Examiner Relationship Specialty Start Date End Date StormJulio César Nelson MD [address] [place] [id number] PCP - General Internal Medicine 07/02/23
--- NOTE | 2024-11-24 07:28 | AM.OFFWIN_ITS ---
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 - The pain began a week ago, described a s burning sensation and severe, extending from the neck to the pacemaker area. - The patient reports a high pain tolera nce but finds this condition part icularly distressing, causing nausea and sleep disturbances. - Initial blisters have healed, with a s padmini one noted on the right side of neck - The patient has not had shingles befor e and has a history of chickenpox. - The patient has been using Tylenol and triple antibiotic ointment without relief. - He denies joint pain, fever, chills, C P, SOB, abd pain, n/v/d, bug bites, discharge. - He denies new lotions, soaps, detergen ts, shampoos, medications, foods, travel or pets. Physical Exam General: Cooperative, healthy appearing, comfortable, no acute distress and well developed Orientation: Patient oriented x3 Limitations: No limitations Head: Normal to inspection Neck: Normal visual inspection and Yes full ROM. No lymphadenopathy noted. Respiratory: Normal respiratory effort and able to speak in complete sentences. No w/r/r noted. Cardiac: RRR, no m/r/g noted. Skin: Maculopapular erythematous tender rash with an erythematous base on the of the neck, with healed blisters. No fluctuance noted. No induration noted. Neuro: Patient oriented x3 Patient was informed and verbally consented to the use of an ambient scribe for clinic note documentation during this visit. [facility] Medical History (Updated 01/20/23 @ 17:50 by Brian Lentz MD) Hypothyroid Peripheral artery disease Elevated cholesterol Myocardial infarction CAD (coronary artery disease) HTN (hypertension) High cholesterol Surgical History (Updated 08/11/23 @ 12:52 by Brian Lentz MD) Hx of cardiac catheterization Hx of heart artery stent AICD (automatic cardioverter/defibrillator) present Hx of left inguinal hernia repair History of surgery Family History (Updated 09/25/22 @ 10:51 by NATY Garvin) Mother Ovarian cancer Father Heart attack Social History (Updated 09/25/22 @ 10:51 by NATY Garvin) Are you a primary care assistant to a significant other at home: No Do you presently have visiting nurse or other home services: No Alcohol intake: never Patient Tobacco Use Status: Former Tobacco user Tobacco use type: Cigarette Years Smoked: 30 +/- Current occupational status: retired 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 Review of Systems Const All systems reviewed & are unremarkable except as noted in HPI and below Physical Exam Vital Signs: Last Vital Signs Temp 97.8 F 11/24/24 07:33 Pulse 58 11/24/24 07:33 Resp 16 11/24/24 07:33 BP 126/76 11/24/24 07:33 Pulse Ox 98 11/24/24 07:33 Oxygen Delivery Method Room Air 11/24/24 07:33 BMI result Body Mass Index 23.3 Assessment & Plan Assessment & Plan (1) Rash: Code(s): R21 - Rash and other nonspecific skin eruption Plan Most likely shingles due to the pain and nature of the rash and location in the C4 dermatome plan - tylenol or motrin as needed for pain - prednisone for 5 days - gabapentin 100 mg at bedtime - hydrocortisone cream to the area TID - follow up with PCP Medications: New gabapentin 100 mg PO BEDTIME 30 caps 0RF prednisone 40 mg (2 x 20 mg) PO DAILY 10 tabs 0RF 5 days hydrocortisone 2.5% 1 appl topical BID PRN 30 grams 0RF Skin Irritation Coding Level of Care Code Est Pt Level 3 (57915) Diagnoses Rash R21
[2024-11-24 07:33] VITALS: BP 126/76; PULSE 58; RESP 16; TEMP 36.6; O2SAT 98; BMI 23.3
== END 2024-11-24 08:10 | disposition home or self-care (01) ==
PROVIDERS: PCP Internal Medicine; Visit Provider Physician Assistant Medical
DX: R21 Rash and other nonspecific skin eruption (principal)

== ENCOUNTER → 2024-11-24 07:15 | Outpatient (BNVA) | payer MEDICARE, MEDICAID, SELFPAY | PROVIDERS: PCP Internal Medicine; Visit Provider Physician Assistant Medical | DX: M54.2 Cervicalgia (principal); M25.512 Pain in left shoulder; R21 Rash and other nonspecific skin eruption | CPT/HCPCS: 99212 ==